=== PATIENT | female | born 1935 | race Caucasian/White ===

== ENCOUNTER 2016-10-15 10:10 | Inpatient (IN) ==
[2016-10-15] MEDS ORDERED: ALBUTEROL 2.5 MG/3 ML NEB RESP TX PRN (10:36)
[2016-10-15] MEDS ORDERED: ACETAMINOPHEN 325 MG TABLET PO PRN (10:36)
--- NOTE | 2016-10-15 10:42 | Nephrology History & Physical ---
History of Present Illness Chief complaint: abdominal pain, nausea History of present illness: Ms. Csah is a 81 year old female with history of HTN, CKD stage III, arthrititis, atrial fibrillation who presented today in clinic with a one month history of nausea and vomiting associated with abdominal pain. The patient had been evaluated in the emergency department several times for similar symptoms. However, she mentions that she is continue to get worse. She further mentions that today, she was not able to keep her medicines are food down. There has been no history of fevers or chills. She denies any other change in her medicines. She states she just feels weak all over. Home Medications Medication Instructions Recorded Confirmed Type Allopurinol [Zyloprim] 100 mg PO BID 08/08/15 10/15/16 History Donepezil HCl 5 mg PO BEDTIME 08/08/15 10/15/16 History Furosemide Tab [Lasix Tab] 40 mg PO BID DIURETIC PRN 08/08/15 10/15/16 History Temazepam 15 mg PO BEDTIME PRN 08/08/15 10/15/16 History Pantoprazole Tab [Protonix Tab] 40 mg PO DAILY #30 tablet 08/15/15 10/15/16 Rx Aspirin EC Tab 81 mg PO DAILY 01/12/16 10/15/16 History hydroCHLOROthiazide 25 mg PO DAILY 01/12/16 10/15/16 History [Hydrochlorothiazide] Doxazosin [Cardura] 2 mg PO DAILY 09/18/16 10/15/16 History Hydralazine HCl 100 mg PO BID 09/18/16 09/18/16 History Metoprolol Tartrate Tab [Lopressor 25 mg PO BID 09/18/16 10/15/16 History Tab] Cyclobenzaprine [Flexeril] 7.5 mg PO Q6HR 10/15/16 10/15/16 History HYDROcodone/ACETAMIN 5-325 [[place] 1 tablet PO DAILY PRN 10/15/16 10/15/16 History 5-325] Potassium Chloride [Klor-Con M20] 1 tablet PO DAILY PRN 10/15/16 10/15/16 History Allergies Allergy/AdvReac Type Severity Reaction Status Date / Time simvastatin [From Zocor] AdvReac Gastrointestinal Verified 09/18/16 22:15 Upset arthritis med Allergy Intermediate RASH Uncoded 09/18/16 22:15 Review of Systems Constitutional: anorexia, malaise, no chills Cardiovascular: no chest pain at rest, no chest pain with activity Respiratory: dyspnea, no cough Gastrointestinal: abdominal pain (lower abdominal pain) Medical,Surgical,& Family Hx - Medical History Cardio: History of: Cardiac Dysrhythmia (atrial fib), Hypertension Neurology: No history of: Seizures HEENT: History of: Eye Problem (retinal bleed) Endocrine: No history of: Diabetes Mellitus (NIDDM) Rheumatology: History of;: Gout, Rheumatoid Arthritis Renal: History of: Renal Failure (chronic class III previous had acute the recovered) Musculoskeletal: History of: Musculoskeletal Problems (the patient has arthritic changes. She states that she has RA) No history of: Amputation Hematology: History of: Blood Transfusion Reaction (1978) Other: History of: Miscellaneous Medical Problems (large pericardial effusion status post pericardiocentesis) - Surgical History Cardiac Surgeries: Patient Denies: Cardiac Catheterization Thoracic Surgeries: Patient denies;: Organ Transplant Neurologic Surgeries: Patient denies: Neurologic Surgery HEENT Surgeries: Surgical HX of: Eye Surgery Patient denies: Thyroid Surgery, Tonsilectomy & Adenoidectomy Reproductive Surgeries: Patient denies;: Genitourinary Surgery, Gynecologic Surgery - Family History Family History: Reports;: Family Heart Disease, Family Hypertension - Social History Smoking Status: Never smoker Exam - Nephrology - General Appearance General appearance: well-developed, appears started age, fatigue EENT: mucous membranes moist, mucous membranes dry Neck: supple Respiratory: clear Cardiology: no edema, regular rate, regular rhythm Gastrointestinal: tenderness (mild tenderness of the lower abdominal exam) Neurologic: alert and oriented x3, CN 3-12 intact Musculoskeletal: no deformities Psychiatric: mood/affect appropriate, cooperative Results - Labs CBC & BMP: 10/15/16 14:59 10/15/16 14:59 Assessment and Plan (1) A-fib Status: Chronic Assessment and plan: rate controlled Current Visit: No (2) Diabetes mellitus Status: Chronic Current Visit: No Qualifiers: Diabetes mellitus type: type 2 (3) Atrial fibrillation Status: Chronic Current Visit: No Qualifiers: Atrial fibrillation type: paroxysmal Qualified Code(s): I48.0 - Paroxysmal atrial fibrillation (4) CKD (chronic kidney disease) stage 3, GFR 30-59 ml/min Status: Chronic Assessment and plan: Renal function is at baseline. Current Visit: No (5) Rheumatoid arthritis Status: Chronic Current Visit: No (6) Cough Status: Acute Assessment and plan: Guaifenesin with codeine. Chest x-ray. Current Visit: Yes
[2016-10-15] MEDS ORDERED: GLUCAGON 1 MG VIAL IM PRN (10:45)
[2016-10-15] MEDS ORDERED: DEXTROSE 50% 25 GM/50 ML VIAL IV PRN (10:45)
[2016-10-15 15:54] LABS: Basophils % 0.3 % (0.0-0.8); Eosinophils # 0.2 10*3/uL (0.0-0.87); Eosinophils % 2.9 % (0.00-10.9); Hematocrit 33.2 VOL% (35.7-47.0); Hemoglobin 10.7 GM/DL (12.0-16.0); Immature Granulocytes % 1.4 %; Immature Granulocytes Absolute 0.09 #; Lymphocytes # 2.2 10*3/uL (1.4-4.0); Lymphocytes % 33.1 % (21.3-54.2); Mean Corpuscular HGB Conc 32.2 GM/DL (32-36); Mean Corpuscular Hemoglobin 30 PG (27-34); Mean Corpuscular Volume 93.3 FL (87-102); Mean Platelet Volume 11.7 FL (9.6-12.0); Monocytes # 0.8 10*3/uL (0.11-0.8); Monocytes % 12.2 % (1.7-12.7); Neutrophils # 3.3 10*3/uL (1.4-7.4); Neutrophils % 50.1 % (38.7-73.9); Platelet Count 224 T/CUMM (130-400); Red Blood Count 3.56 MC/CUMM (3.8-5.5); Red Cell Distribution Width 16.1 % (9.3-17.3); White Blood Count 6.5 T/CUMM (4-12)
[2016-10-15 16:21] LABS: Albumin 3.4 G/DL (3.4-5.0); Bilirubin,Total 0.4 MG/DL (0.2-1.0); Calcium 8.7 MG/DL (8.5-10.1); Osmolality,Calculated 296.3 MOS/KG (273-304); Potassium 3.2 MMOL/L (3.5-5.1); Total Protein 5.3 G/DL (6.4-8.3)
--- NOTE | 2016-10-15 17:49 | XRay Report ---
XR abdomen 1V Clinical Information: Abdominal Pain lower abdomen Comparison: 09/18/16 Findings: Bowel gas pattern is nonspecific and within normal limits. No abnormally dilated small bowel loops are identified to suggest obstruction. There is no free air identified. Scattered fecal material is noted throughout colon, which is otherwise nondilated. No abnormal focal soft tissue masses or calcific densities are identified in the abdomen or pelvis. Lung bases appear predominantly clear. There is no acute osseous abnormality. No suspicious osseous lesions are identified. Impression: No acute radiographic abnormality in the abdomen. A mild degree of fecal stasis/constipation is suspected. PROCEDURE INTERPRETED AT [facility] DEPARTMENT OF RADIOLOGY Final Report Signed by: Konstantin Jo
[2016-10-15] MEDS: INSULIN REGULAR 100 UNIT/ML SUBCUT SCH ×2 (19:03→21:20)
[2016-10-15] MEDS: SODIUM CHLORIDE 0.45% 1,000 ML IV SCH (19:18)
[2016-10-15] MEDS: ENOXAPARIN 30 MG/0.3 ML SYRINGE SUBCUT SCH (20:18)
[2016-10-15] MEDS ORDERED: FUROSEMIDE 40 MG TABLET PO PRN (20:33)
[2016-10-15] MEDS ORDERED: POTASSIUM CHLORIDE 20 MEQ TABLET PO PRN (20:33)
[2016-10-15 21:01] LABS: Apearance,Urine CLEAR (Clear); Bilirubin,Urine Negative (Negative); Blood, Urine Negative (Negative); Glucose,Urine (UA) Negative (Negative); Ketones,Urine Negative (Negative); Nitrite,Urine Negative (Negative); Protein,Urine 100 MG/DL; RBC,Urine <1 /HPF (0-4); Squamous Epithelial Cell,Urine Occasional /HPF (0-10); Transitional Epi Cells,Urine Occasional /HPF (<1); Urine Color Yellow (Yellow); Urine Urobilinogen < 2.0 EU/DL (0.2-1.0); WBC,Urine 3 /HPF (0-6)
[2016-10-15] MEDS: guaiFENesin/CODEINE 5 ML LIQUID PO PRN (21:13)
[2016-10-15] MEDS: TEMAZEPAM 15 MG CAPSULE PO PRN (21:13)
[2016-10-15] MEDS: FAMOTIDINE 20 MG TABLET PO SCH (21:13)
[2016-10-15] MEDS: METOPROLOL TARTRATE 25 MG TABLET PO SCH (21:13)
[2016-10-15] MEDS: DONEPEZIL 5 MG TABLET PO SCH (21:13)
[2016-10-15] MEDS: DOCUSATE SODIUM 100 MG CAPSULE PO SCH (21:13)
[2016-10-15] MEDS: ALLOPURINOL 100 MG TABLET PO SCH (21:19)
[2016-10-16 05:40] LABS: Calcium 7.9 MG/DL (8.5-10.1); Osmolality,Calculated 290.7 MOS/KG (273-304)
[2016-10-16] MEDS: SODIUM CHLORIDE 0.45% 1,000 ML IV SCH ×2 (06:21→10:46)
--- NOTE | 2016-10-16 08:15 | XRay Report ---
Referring Physician: Brandon Escobar Jr Exam: XR chest 1V portable Date: October 16, 2016 at 3:58 AM Reason: Cough Comparison: Chest one view portable September 18, 2016 Findings: The cardiac silhouette is again enlarged. The interstitial markings and pulmonary vasculature are slightly prominent bilaterally, suggesting minimal pulmonary edema. No pneumothorax or pleural effusion is identified. The osseous structures appear stable with degenerative change at both shoulders. Impression: 1. Cardiomegaly. 2. Minimal pulmonary edema. PROCEDURE INTERPRETED AT [facility] DEPARTMENT OF RADIOLOGY Final Report Signed by: Dr. Bernardo Walsh
--- NOTE | 2016-10-16 09:04 | Nephrology Progress Note ---
Nephrology - PN: Subj Interval history: Patient is resting comfortably no acute changes. States her abdominal discomfort is better. Follow-up KUB showed evidence of constipation but no air- fluid levels. No fevers or chills. Exam (PN)-Nephrology - Vital Signs Vital signs: Period Temp Pulse Resp BP Sys/Wilde Pulse Ox Last 24 Hr 98.0 F-98.9 F 72-89 18-18 108-139/53-89 95-100 - General Appearance General appearance: well-developed, well-nourished EENT: ATNC Neck: supple Respiratory: clear Cardiology: regular rate, irregular rhythm Gastrointestinal: normoactive bowel sounds, no tenderness Neurologic: alert and oriented x3, CN 3-12 intact Musculoskeletal: no clubbing Psychiatric: mood/affect appropriate - Lab 10/15/16 14:59 10/16/16 04:27 Most recent lab results Calcium 7.9 MG/DL (8.5-10.1) L 10/16/16 04:27 Assessment and Plan (1) A-fib Status: Chronic Assessment and plan: rate controlled Current Visit: No (2) Diabetes mellitus Status: Chronic Current Visit: No Qualifiers: Diabetes mellitus type: type 2 (3) Atrial fibrillation Status: Chronic Current Visit: No Qualifiers: Atrial fibrillation type: paroxysmal Qualified Code(s): I48.0 - Paroxysmal atrial fibrillation (4) CKD (chronic kidney disease) stage 3, GFR 30-59 ml/min Status: Chronic Assessment and plan: Renal function is at baseline. Current Visit: No (5) Rheumatoid arthritis Status: Chronic Current Visit: No (6) Cough Status: Acute Assessment and plan: Guaifenesin with codeine. Current Visit: Yes
[2016-10-16] MEDS: DOCUSATE SODIUM 100 MG CAPSULE PO SCH ×2 (10:44→20:17)
[2016-10-16] MEDS: ASPIRIN EC 81 MG TABLET PO SCH (10:45)
[2016-10-16] MEDS: ALLOPURINOL 100 MG TABLET PO SCH ×2 (10:45→20:17)
[2016-10-16] MEDS: FAMOTIDINE 20 MG TABLET PO SCH ×2 (10:45→20:17)
[2016-10-16] MEDS: DOXAZOSIN 1 MG TABLET PO SCH (10:45)
[2016-10-16] MEDS: METOPROLOL TARTRATE 25 MG TABLET PO SCH ×2 (10:46→20:18)
[2016-10-16] MEDS: INSULIN REGULAR 100 UNIT/ML SUBCUT SCH ×4 (12:03→20:19)
[2016-10-16] MEDS: POTASSIUM CHLORIDE 20 MEQ TABLET PO SCH (20:16)
[2016-10-16] MEDS: CYCLOBENZAPRINE 10 MG TABLET PO SCH (20:17)
[2016-10-16] MEDS: ENOXAPARIN 30 MG/0.3 ML SYRINGE SUBCUT SCH (20:18)
[2016-10-16] MEDS: DONEPEZIL 5 MG TABLET PO SCH (20:18)
[2016-10-17 06:15] LABS: Calcium 7.7 MG/DL (8.5-10.1); Osmolality,Calculated 290.4 MOS/KG (273-304)
[2016-10-17] MEDS: SODIUM CHLORIDE 0.45% 1,000 ML IV SCH (06:51)
[2016-10-17] MEDS: CYCLOBENZAPRINE 10 MG TABLET PO SCH ×4 (08:52→21:07)
[2016-10-17] MEDS: DOXAZOSIN 1 MG TABLET PO SCH (08:52)
[2016-10-17] MEDS: ALLOPURINOL 100 MG TABLET PO SCH ×2 (08:52→21:07)
[2016-10-17] MEDS: FAMOTIDINE 20 MG TABLET PO SCH ×2 (08:52→21:07)
[2016-10-17] MEDS: ASPIRIN EC 81 MG TABLET PO SCH (08:52)
[2016-10-17] MEDS: METOPROLOL TARTRATE 25 MG TABLET PO SCH ×2 (08:52→21:07)
[2016-10-17] MEDS: INSULIN REGULAR 100 UNIT/ML SUBCUT SCH ×2 (08:53→14:00)
[2016-10-17] MEDS: DOCUSATE SODIUM 100 MG CAPSULE PO SCH ×2 (08:53→21:07)
[2016-10-17] MEDS: POTASSIUM CHLORIDE 20 MEQ TABLET PO SCH ×2 (08:53→21:06)
--- NOTE | 2016-10-17 19:13 | Nephrology Progress Note ---
Nephrology - PN: Subj Interval history: The patient is resting comfortably no acute changes no fevers or chills. No shortness of breath. Renal function has been stable. Exam (PN)-Nephrology - Vital Signs Vital signs: Period Temp Pulse Resp BP Sys/Wilde Pulse Ox Last 24 Hr 98.1 F-99.0 F 71-86 16-20 104-128/53-69 94-100 - General Appearance General appearance: well-developed, well-nourished EENT: ATNC Neck: supple Respiratory: clear Cardiology: no edema, regular rate, regular rhythm Gastrointestinal: normoactive bowel sounds, no tenderness, no guarding Neurologic: alert and oriented x3, CN 3-12 intact Musculoskeletal: no clubbing Psychiatric: mood/affect appropriate, cooperative - Lab 10/15/16 14:59 10/17/16 05:26 Most recent lab results Calcium 7.7 MG/DL (8.5-10.1) L 10/17/16 05:26 Assessment and Plan (1) A-fib Status: Chronic Assessment and plan: rate controlled Current Visit: No (2) Diabetes mellitus Status: Chronic Current Visit: No Qualifiers: Diabetes mellitus type: type 2 (3) Atrial fibrillation Status: Chronic Current Visit: No Qualifiers: Atrial fibrillation type: paroxysmal Qualified Code(s): I48.0 - Paroxysmal atrial fibrillation (4) CKD (chronic kidney disease) stage 3, GFR 30-59 ml/min Status: Chronic Assessment and plan: Renal function is at baseline. Current Visit: No (5) Rheumatoid arthritis Status: Chronic Current Visit: No (6) Cough Status: Acute Assessment and plan: Guaifenesin with codeine. Current Visit: Yes
[2016-10-17] MEDS: DONEPEZIL 5 MG TABLET PO SCH (21:07)
[2016-10-17] MEDS: guaiFENesin/CODEINE 5 ML LIQUID PO PRN (21:08)
[2016-10-17] MEDS: ENOXAPARIN 30 MG/0.3 ML SYRINGE SUBCUT SCH (21:08)
[2016-10-18] MEDS: SODIUM CHLORIDE 0.45% 1,000 ML IV SCH ×2 (02:17→21:33)
[2016-10-18] MEDS ORDERED: CYANOCOBALAMIN 1000 MCG/1 ML VIAL SUBCUT ONE (08:00)
[2016-10-18] MEDS: ASPIRIN EC 81 MG TABLET PO SCH (08:52)
[2016-10-18] MEDS: METOPROLOL TARTRATE 25 MG TABLET PO SCH ×2 (08:52→21:30)
[2016-10-18] MEDS: ALLOPURINOL 100 MG TABLET PO SCH ×2 (08:52→21:31)
[2016-10-18] MEDS: FAMOTIDINE 20 MG TABLET PO SCH ×2 (08:52→21:31)
[2016-10-18] MEDS: POTASSIUM CHLORIDE 20 MEQ TABLET PO SCH (08:52)
[2016-10-18] MEDS: DOCUSATE SODIUM 100 MG CAPSULE PO SCH ×2 (08:52→21:30)
[2016-10-18] MEDS: DOXAZOSIN 1 MG TABLET PO SCH (08:53)
[2016-10-18] MEDS: CYCLOBENZAPRINE 10 MG TABLET PO SCH ×4 (08:53→21:30)
[2016-10-18] MEDS: ONDANSETRON 4 MG/2 ML VIAL IV PRN ×2 (09:04→16:40)
--- NOTE | 2016-10-18 16:55 | Nephrology Progress Note ---
Nephrology - PN: Subj Interval history: The patient is resting comfortably no acute changes. She continues to feel nauseated. No fevers or chills. No shortness of breath. Phenergan 12.5 mg p.o. as needed Exam (PN)-Nephrology - Vital Signs Vital signs: Period Temp Pulse Resp BP Sys/Wilde Pulse Ox Last 24 Hr 97.5 F-98.3 F 69-99 16-20 105-130/57-72 96-100 - General Appearance General appearance: well-developed, well-nourished EENT: ATNC Neck: supple Respiratory: clear Cardiology: no edema, regular rate, regular rhythm Gastrointestinal: normoactive bowel sounds, no tenderness Neurologic: alert and oriented x3 Musculoskeletal: no erythema, no clubbing Psychiatric: mood/affect appropriate - Lab 10/15/16 14:59 10/17/16 05:26 Most recent lab results Calcium 7.7 MG/DL (8.5-10.1) L 10/17/16 05:26 Assessment and Plan (1) A-fib Status: Chronic Assessment and plan: rate controlled Current Visit: No (2) Diabetes mellitus Status: Chronic Current Visit: No Qualifiers: Diabetes mellitus type: type 2 (3) Atrial fibrillation Status: Chronic Current Visit: No Qualifiers: Atrial fibrillation type: paroxysmal Qualified Code(s): I48.0 - Paroxysmal atrial fibrillation (4) CKD (chronic kidney disease) stage 3, GFR 30-59 ml/min Status: Chronic Assessment and plan: Renal function is at baseline. Current Visit: No (5) Rheumatoid arthritis Status: Chronic Current Visit: No (6) Cough Status: Acute Assessment and plan: Guaifenesin with codeine. Current Visit: Yes
[2016-10-18] MEDS ORDERED: PROMETHAZINE 25 MG TABLET PO PRN (17:40)
[2016-10-18] MEDS: DONEPEZIL 5 MG TABLET PO SCH (21:29)
[2016-10-18] MEDS: ENOXAPARIN 30 MG/0.3 ML SYRINGE SUBCUT SCH (21:35)
[2016-10-19 08:08] LABS: Basophils % 0.5 % (0.0-0.8); Eosinophils # 0.3 10*3/uL (0.0-0.87); Eosinophils % 5.9 % (0.00-10.9); Hematocrit 30.7 VOL% (35.7-47.0); Hemoglobin 9.7 GM/DL (12.0-16.0); Immature Granulocytes % 1.1 %; Immature Granulocytes Absolute 0.05 #; Lymphocytes # 1.5 10*3/uL (1.4-4.0); Lymphocytes % 33.9 % (21.3-54.2); Mean Corpuscular HGB Conc 31.6 GM/DL (32-36); Mean Corpuscular Hemoglobin 30 PG (27-34); Mean Platelet Volume 10.6 FL (9.6-12.0); Monocytes # 0.5 10*3/uL (0.11-0.8); Monocytes % 11.7 % (1.7-12.7); Neutrophils # 2.1 10*3/uL (1.4-7.4); Neutrophils % 46.9 % (38.7-73.9); Platelet Count 197 T/CUMM (130-400); Red Blood Count 3.23 MC/CUMM (3.8-5.5); Red Cell Distribution Width 16.3 % (9.3-17.3); White Blood Count 4.4 T/CUMM (4-12)
[2016-10-19 08:32] LABS: Calcium 7.8 MG/DL (8.5-10.1); Osmolality,Calculated 288.4 MOS/KG (273-304)
--- NOTE | 2016-10-19 08:35 | Nephrology Progress Note ---
Nephrology - PN: Subj Interval history: The patient is resting continued to have some nausea yesterday. No fevers or chills. Metabolic's have been stable. Abdominal ultrasound to be done today which did not show acute abnormality. However patient still complains of abdominal tenderness. Will ask for GI consult. Exam (PN)-Nephrology - Vital Signs Vital signs: Period Temp Pulse Resp BP Sys/Wilde Pulse Ox Last 24 Hr 97.1 F-99.1 F 76-104 14-18 116-130/57-74 95-100 - General Appearance General appearance: well-developed EENT: ATNC Neck: supple Respiratory: clear Cardiology: regular rate, regular rhythm Gastrointestinal: normoactive bowel sounds, tenderness (To light touch) Integumentary: no rash Neurologic: alert and oriented x3, CN 3-12 intact Musculoskeletal: no clubbing Psychiatric: mood/affect appropriate - Lab 10/19/16 07:52 10/19/16 07:52 Most recent lab results Calcium 7.7 MG/DL (8.5-10.1) L 10/17/16 05:26 Assessment and Plan (1) A-fib Status: Chronic Assessment and plan: rate controlled Current Visit: No (2) Diabetes mellitus Status: Chronic Current Visit: No Qualifiers: Diabetes mellitus type: type 2 (3) Atrial fibrillation Status: Chronic Current Visit: No Qualifiers: Atrial fibrillation type: paroxysmal Qualified Code(s): I48.0 - Paroxysmal atrial fibrillation (4) CKD (chronic kidney disease) stage 3, GFR 30-59 ml/min Status: Chronic Assessment and plan: Renal function is at baseline. Current Visit: No (5) Rheumatoid arthritis Status: Chronic Current Visit: No (6) Cough Status: Acute Assessment and plan: Guaifenesin with codeine. Current Visit: Yes
--- NOTE | 2016-10-19 08:43 | Ultrasound Report ---
History: Nausea Date: 10/19/2016 Study: Abdominal ultrasound complete Comparison exam: Noncontrast CT abdomen and pelvis January 12, 2016 Real-time ultrasound images are captured and archived. The liver, gallbladder, bile ducts, pancreas, and spleen appear normal. The liver measures 13.2 cm in length. There is no evidence of cholelithiasis or gallbladder wall thickening. The common bile duct measures 5.5 mm diameter. The spleen measures 10.6 x 5.6 x 5.1 cm. There are some occasional scattered calcified granulomata in the spleen. The left kidney measures 7.7 cm length; the right measures 8.3 cm. The renal parenchyma is hyperechoic to the liver, compatible with some medical renal parenchymal disease. There is no focal renal mass or hydronephrosis. The IVC is patent. There is hepatopedal flow in the portal vein. There is some moderate atherosclerotic irregularity of the abdominal aorta without focal aneurysm. Impression: Medical renal parenchymal disease. No significant findings otherwise PROCEDURE INTERPRETED AT [facility] DEPARTMENT OF RADIOLOGY Final Report Signed by: Dr. Trish Kirby
[2016-10-19] MEDS: ASPIRIN EC 81 MG TABLET PO SCH (09:39)
[2016-10-19] MEDS: METOPROLOL TARTRATE 25 MG TABLET PO SCH ×2 (09:39→20:38)
[2016-10-19] MEDS: FAMOTIDINE 20 MG TABLET PO SCH (09:39)
[2016-10-19] MEDS: CYCLOBENZAPRINE 10 MG TABLET PO SCH ×4 (09:39→20:38)
[2016-10-19] MEDS: ALLOPURINOL 100 MG TABLET PO SCH ×2 (09:39→20:38)
[2016-10-19] MEDS: DOXAZOSIN 1 MG TABLET PO SCH (09:39)
[2016-10-19] MEDS: DOCUSATE SODIUM 100 MG CAPSULE PO SCH (09:40)
[2016-10-19] MEDS ORDERED: BISACODYL 10 MG SUPP RECTAL ONE (11:00)
--- NOTE | 2016-10-19 16:50 | Gastrointestinal Consult Note ---
Assessment and Plan (1) Nausea and vomiting Status: Acute Assessment and plan: This patient has nausea and vomiting which are extremely nonspecific. They may be related to an underlying buildup of acid stomach or buildup of food with hypomotility, there could be a systemic cause such as infection, or this may be secondary to an underlying constipation as the patient appears to be experiencing this and have been treated with Dulcolax but I believe we need to advance this to MiraLAX at this point. She might also do better on Protonix then famotidine which has been started up to this point. Current Visit: Yes (2) Constipation Status: Acute Assessment and plan: The patient's bowel habits change with some regularity. Right now she feels constipated but states that she is typically diarrheal. That being said for the entire time she has been here she has been having difficulty passing the stool. I am going to start her on some MiraLAX twice daily and will see if she starts to have bowel movements with greater regularity. Sodium docusate does not appear to be effective for this patient. She has not had a colonoscopy in years but Dr. Vickers can probably pursue this as an outpatient Current Visit: Yes (3) Generalized abdominal pain Status: Acute Assessment and plan: The patient does have some generalized abdominal pain and this may be due to hypomotility/constipation/possibly gastroparesis. We need to better quantify the patient's emptying from her stomach. She might be a candidate for Reglan or least discontinuation of the narcotics. In the interim, I will go ahead and stop the famotidine and start pantoprazole 40 mg twice daily. Further recommendations post trial of the increased pantoprazole. Current Visit: Yes (4) Personal history of colonic polyps Status: Acute Assessment and plan: This patient had apparently had previous colonoscopy done at [facility] 5- 10 years ago. Will be helpful to try and get these old records. She states that she did have polyps and this needs to be verified. She can follow-up with Dr. Vickers was time to get her colonoscopy as he saw her last month. Current Visit: Yes History of Present Illness Chief complaint: Nausea/vomiting/constipation/diffuse abdominal pain. History of present illness: Ms. Cash is a 81 year old female who has seen Dr. Vickers as recently as for an upper GI bleeding episode in association with a coagulopathy. He is out for the weekend. At that time, she had been taking Coumadin and had an episode of hematemesis that was felt to be due to a Mabel-Madison tear after increasing her INR to 6. She was treated with fresh frozen plasma as well as discontinuation of her aspirin and Coumadin after endoscopy on 09/01/15 demonstrated the Mabel-Madison tear with otherwise normal-appearing stomach and esophagus. Patient states that she has had long-standing nausea and vomiting despite use of Protonix 40 mg daily since that time and although she states that she has diarrhea frequently she has had constipation over the last 5 days which nursing staff has had to recently treat with a Dulcolax suppository. The patient was admitted to the hospital by Dr. Brandon Patterson on 10/15/16 for nausea vomiting and abdominal pain. She states that the belly pain is diffuse but seems to be worse in the periumbilical and left lower quadrant regions in keeping with underlying constipation issues. She states that she has had a history of colonoscopy performed [facility] sometime in the last 5 years with the discovery of polyps at that time.. She does not claim to be particularly bloated. She does take aspirin in addition to the pantoprazole on a daily basis and her only other caustic medication is potassium routinely. She has had an abdominal ultrasound done which was unremarkable concerning the liver, gallbladder, bile ducts, pancreas, and spleen as well as liver although there were a few occasional scattered calcified granulomas in the spleen. While here in the hospital the patient has been on Lovenox and has been getting famotidine but no Protonix. She has been getting Dulcolax but is also being treated with narcotics in addition to her Zofran which she has not been asking for routinely. I wonder whether there is significant constipation going on but the patient denies this though the nursing staff confirms that she has not had a bowel movement several days. Belly pain would appear to be consistent with obstipation. Previous CT scan done in December 2015 demonstrated diffuse diverticulosis without active inflammation. 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 Home Medications Medication Instructions Recorded Confirmed Type Allopurinol [Zyloprim] 100 mg PO BID 08/08/15 10/15/16 History Donepezil HCl 5 mg PO BEDTIME 08/08/15 10/15/16 History Furosemide Tab [Lasix Tab] 40 mg PO BID DIURETIC PRN 08/08/15 10/15/16 History Temazepam 15 mg PO BEDTIME PRN 08/08/15 10/15/16 History Pantoprazole Tab [Protonix Tab] 40 mg PO DAILY #30 tablet 08/15/15 10/15/16 Rx Aspirin EC Tab 81 mg PO DAILY 01/12/16 10/15/16 History hydroCHLOROthiazide 25 mg PO DAILY 01/12/16 10/15/16 History [Hydrochlorothiazide] Doxazosin [Cardura] 2 mg PO DAILY 09/18/16 10/15/16 History Hydralazine HCl 100 mg PO BID 09/18/16 10/15/16 History Metoprolol Tartrate Tab [Lopressor 25 mg PO BID 09/18/16 10/15/16 History Tab] Cyclobenzaprine [Flexeril] 7.5 mg PO Q6HR 10/15/16 10/15/16 History HYDROcodone/ACETAMIN 5-325 [[place] 1 tablet PO DAILY PRN 10/15/16 10/15/16 History 5-325] Potassium Chloride [Klor-Con M20] 1 tablet PO DAILY PRN 10/15/16 10/15/16 History Allergies Allergy/AdvReac Type Severity Reaction Status Date / Time simvastatin [From Zocor] AdvReac Gastrointestinal Verified 09/18/16 22:15 Upset arthritis med Allergy Intermediate RASH Uncoded 09/18/16 22:15 Medical,Surgical,& Family Hx - Medical History Cardio: History of: Cardiac Dysrhythmia (atrial fib), Hypertension Neurology: No history of: Seizures HEENT: History of: Eye Problem (retinal bleed) Endocrine: No history of: Diabetes Mellitus (NIDDM) Rheumatology: History of;: Gout, Rheumatoid Arthritis Renal: History of: Renal Failure (chronic class III previous had acute the recovered) Musculoskeletal: History of: Musculoskeletal Problems (the patient has arthritic changes. She states that she has RA) No history of: Amputation Hematology: History of: Blood Transfusion Reaction (1978) Other: History of: Miscellaneous Medical Problems (large pericardial effusion status post pericardiocentesis) - Surgical History Cardiac Surgeries: Patient Denies: Cardiac Catheterization Thoracic Surgeries: Patient denies;: Organ Transplant, Lobectomy Neurologic Surgeries: Patient denies: Neurologic Surgery HEENT Surgeries: Surgical HX of: Eye Surgery Patient denies: Thyroid Surgery, Tonsilectomy & Adenoidectomy Reproductive Surgeries: Patient denies;: Genitourinary Surgery, Gynecologic Surgery - Family History Family History: Reports;: Family Heart Disease, Family Hypertension - Social History Smoking Status: Never smoker Frequency of Alcohol Use: None Type of Drug Use: None 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 Exam - Constitutional Vitals: Period Temp Pulse Resp BP Sys/Wilde Pulse Ox Last 24 Hr 97.1 F-99.1 F 71-110 14-20 104-129/57-74 95-100 Exam: Constitutional: Well-developed, well-nourished, alert, and in no acute distress Head and face: Head: Normocephalic atraumatic Eyes: Conjunctiva without injection, no gross scleral icterus, pupils equal and round bilaterally Ears: Intact to conversation in both ears Nose: External appearance with nares patent Mouth: Oral mucous membranes moist without erythema dentition noted to be without erosion Neck: Normal appearance, no masses or tenderness, trachea midline Thyroid: Gland midline and appropriate size for age Respiratory: Normal respiratory effort, clear to auscultation without wheezes, rhonchi or rales Cardiovascular: Regular rate and rhythm, normal S1, S2, the exam is without rubs, murmurs or gallops. Gastrointestinal: Mildly tender throughout all quadrants this seems worse in the left lower quadrant to deep palpation, normal active bowel sounds, tone normal without rigidity or guarding, no masses present, no hepatomegaly, no spleen tip felt. No rectal exam obtained. Lymphatic: Neck without adenopathy, axilla without lymphadenopathy present Musculoskeletal: Right and left lower extremities with trace evidence of edema Skin and subcutaneous tissue: No rashes or ulcerations noted, normal skin turgor, digits and nails without clubbing/cyanosis/deformities. Neurologic: The patient is grossly oriented to person place and time, cranial nerves show tongue movements are normal with normal tongue extrusion midline, light touch sensation is intact. Psychiatric: No hallucinations or delusions are present, does not appear depressed Results - Labs CBC & BMP: 10/19/16 07:52 10/19/16 07:52
[2016-10-19] MEDS: ONDANSETRON 4 MG/2 ML VIAL IV PRN (18:27)
[2016-10-19] MEDS: SODIUM CHLORIDE 0.45% 1,000 ML IV SCH (18:27)
[2016-10-19] MEDS: ENOXAPARIN 30 MG/0.3 ML SYRINGE SUBCUT SCH (20:37)
[2016-10-19] MEDS: DONEPEZIL 5 MG TABLET PO SCH (20:38)
[2016-10-19] MEDS: PANTOPRAZOLE 40 MG TABLET PO SCH (20:38)
[2016-10-19] MEDS: POLYETHYLENE GLYCOL POWDER 17 GM PACK PO SCH ×2 (20:38→22:56)
--- NOTE | 2016-10-20 08:24 | Gastrointestinal Progress Note ---
Assessment and Plan (1) Nausea and vomiting Status: Acute Assessment and plan: This patient has nausea and vomiting which are extremely nonspecific. They may be related to an underlying buildup of acid stomach or buildup of food with hypomotility, there could be a systemic cause such as infection, or this may be secondary to an underlying constipation as the patient appears to be experiencing this and have been treated with Dulcolax but I believe we need to advance this to MiraLAX at this point. She might also do better on Protonix then famotidine which has been started up to this point. 10/20/16--We are checking the patient's gastric emptying at this time. She is on the Protonix twice daily to suppress her acidity and is getting MiraLAX to help with her underlying constipation. Her creatinine is improved slightly. Current Visit: Yes (2) Constipation Status: Acute Assessment and plan: The patient's bowel habits change with some regularity. Right now she feels constipated but states that she is typically diarrheal. That being said for the entire time she has been here she has been having difficulty passing the stool. I am going to start her on some MiraLAX twice daily and will see if she starts to have bowel movements with greater regularity. Sodium docusate does not appear to be effective for this patient. She has not had a colonoscopy in years but Dr. Vickers can probably pursue this as an outpatient 10/20/16--Still awaiting benefit from the MiraLAX. Current Visit: Yes (3) Generalized abdominal pain Status: Acute Assessment and plan: The patient does have some generalized abdominal pain and this may be due to hypomotility/constipation/possibly gastroparesis. We need to better quantify the patient's emptying from her stomach. She might be a candidate for Reglan or least discontinuation of the narcotics. In the interim, I will go ahead and stop the famotidine and start pantoprazole 40 mg twice daily. Further recommendations post trial of the increased pantoprazole. 10/20/16--Subjectively this is marginally better from yesterday. We will continue to watch. I am going to put the patient back on a clear liquid diet as she is still having some vomiting. Current Visit: Yes (4) Personal history of colonic polyps Status: Acute Assessment and plan: This patient had apparently had previous colonoscopy done at [facility] 5- 10 years ago. Will be helpful to try and get these old records. She states that she did have polyps and this needs to be verified. She can follow-up with Dr. Vickers was time to get her colonoscopy as he saw her last month. 10/20/16--We can follow this up as an outpatient, with Dr. Vickers. Current Visit: Yes Gastroenterology - PN: Subj Interval history: Patient did not tolerate her renal diet well yesterday with small bites only and vomiting as well. With hydration her creatinine has improved marginally. She did do fairly well with the egg tolerance this morning and is getting her gastric emptying study as we speak. Exam (Progress Note) - Constitutional Vitals: Period Temp Pulse Resp BP Sys/Wilde Pulse Ox Last 24 Hr 97.2 F-98.7 F 71-110 16-20 104-129/67-78 96-98 General appearance: no acute distress - Eye Eye exam: Present: EOMI - Respiratory Respiratory exam: Present: clear to auscultation bilaterally - Cardiovascular Cardiovascular exam: Present: regular rate and rhythm - GI/Abdominal GI/Abdominal exam: Present: distended, hypoactive bowel sounds, tenderness ( There is tenderness noted throughout the abdomen, it is however soft and there is no guarding), soft. Absent: guarding, rebound - Neurological Exam Neurological exam: Present: alert, oriented X3 - Psychiatric Psychiatric exam: Present: normal affect, normal mood - Skin Skin exam: Present: warm Results - Labs CBC & BMP: 10/19/16 07:52 10/19/16 07:52
--- NOTE | 2016-10-20 08:40 | Nephrology Progress Note ---
Nephrology - PN: Subj Interval history: Ms. Cash is seen in follow-up of her chronic renal impairment. She is stable with a serum creatinine 2.9. She continues to complain of abdominal soreness but the abdomen is soft and nontender. Her chest is clear. Abdominal ultrasound is unremarkable. Gastric emptying study has been ordered by Dr. Bernal and hopefully that will be helpful. Exam (PN)-Nephrology - Vital Signs Vital signs: Period Temp Pulse Resp BP Sys/Wilde Pulse Ox Last 24 Hr 97.2 F-98.7 F 71-110 16-20 104-129/67-78 96-98 - Lab 10/19/16 07:52 10/19/16 07:52 Most recent lab results Calcium 7.8 MG/DL (8.5-10.1) L 10/19/16 07:52
[2016-10-20] MEDS: DOXAZOSIN 1 MG TABLET PO SCH (09:09)
[2016-10-20] MEDS: METOPROLOL TARTRATE 25 MG TABLET PO SCH ×2 (09:10→21:33)
[2016-10-20] MEDS: ALLOPURINOL 100 MG TABLET PO SCH ×2 (09:10→21:33)
[2016-10-20] MEDS: POLYETHYLENE GLYCOL POWDER 17 GM PACK PO SCH ×2 (09:10→21:34)
[2016-10-20] MEDS: ASPIRIN EC 81 MG TABLET PO SCH (09:10)
[2016-10-20] MEDS: PANTOPRAZOLE 40 MG TABLET PO SCH ×2 (09:10→18:36)
[2016-10-20] MEDS: CYCLOBENZAPRINE 10 MG TABLET PO SCH ×4 (09:10→21:33)
--- NOTE | 2016-10-20 12:13 | Nuclear Medicine Report ---
Exam: Nuclear medicine gastric emptying study Date: October 20, 2016 Comparison: None Reason: Chronic nausea and vomiting with negative EGD and ultrasound Technique: The patient was orally administered 500 microcuries of technetium 99m sulfur colloid orally in a scrambled egg sandwich. Images of the stomach were then acquired over 233 minutes, and gastric emptying time was calculated. Findings: Linear fit T 1/2 is 199.43 minutes, and raw data T 1/2 is 161.68 minutes. Gastric emptying at 233 minutes is 57% (Normal greater than 90%). Impression: Findings are consistent with delayed gastric emptying. PROCEDURE INTERPRETED AT [facility] DEPARTMENT OF RADIOLOGY Final Report Signed by: Dr. Bernardo Walsh
[2016-10-20] MEDS: SODIUM CHLORIDE 0.45% 1,000 ML IV SCH ×2 (17:00→21:42)
[2016-10-20] MEDS: DONEPEZIL 5 MG TABLET PO SCH (21:33)
[2016-10-20] MEDS: ENOXAPARIN 30 MG/0.3 ML SYRINGE SUBCUT SCH (21:34)
[2016-10-21] MEDS: DOXAZOSIN 1 MG TABLET PO SCH (08:44)
[2016-10-21] MEDS: ASPIRIN EC 81 MG TABLET PO SCH (08:44)
[2016-10-21] MEDS: ALLOPURINOL 100 MG TABLET PO SCH ×2 (08:44→20:51)
[2016-10-21] MEDS: CYCLOBENZAPRINE 10 MG TABLET PO SCH ×4 (08:44→20:51)
[2016-10-21] MEDS: PANTOPRAZOLE 40 MG TABLET PO SCH ×2 (08:45→20:51)
[2016-10-21] MEDS: POLYETHYLENE GLYCOL POWDER 17 GM PACK PO SCH ×2 (08:45→20:50)
[2016-10-21] MEDS: METOPROLOL TARTRATE 25 MG TABLET PO SCH ×2 (08:45→20:51)
[2016-10-21] MEDS: ONDANSETRON 4 MG/2 ML VIAL IV PRN (08:57)
--- NOTE | 2016-10-21 09:18 | Nephrology Progress Note ---
Nephrology - PN: Subj Interval history: Ms. Cash is seen in follow-up of her renal impairment and abdominal discomfort. A gastric emptying study is pending she says her abdomen feels better and is nontender today. Overall she is better and we will await her gastric emptying study. No changes are planned for today. Exam (PN)-Nephrology - Vital Signs Vital signs: Period Temp Pulse Resp BP Sys/Wilde Pulse Ox Last 24 Hr 97.3 F-98.4 F 85-106 18-20 107-140/60-75 95-96 - Lab 10/19/16 07:52 10/19/16 07:52 Most recent lab results Calcium 7.8 MG/DL (8.5-10.1) L 10/19/16 07:52
--- NOTE | 2016-10-21 11:13 | Gastrointestinal Progress Note ---
Assessment and Plan (1) Nausea and vomiting Status: Acute Assessment and plan: This patient has nausea and vomiting which are extremely nonspecific. They may be related to an underlying buildup of acid stomach or buildup of food with hypomotility, there could be a systemic cause such as infection, or this may be secondary to an underlying constipation as the patient appears to be experiencing this and have been treated with Dulcolax but I believe we need to advance this to MiraLAX at this point. She might also do better on Protonix then famotidine which has been started up to this point. 10/20/16--We are checking the patient's gastric emptying at this time. She is on the Protonix twice daily to suppress her acidity and is getting MiraLAX to help with her underlying constipation. Her creatinine is improved slightly. 10/21/16--gastric emptying study is significantly delayed with T1 half emptying time normally 90 minutes, in this patient is proximally 161 minutes. We will go ahead and start her on Reglan 5 mL of the elixir 4 times a day before meals and bed. This may also help out with her underlying constipation issues. The patient was warned about tardive dyskinesia and to observe for anxiety/twitching /involuntary muscle spasms. I have written her prescription for the medication and left this in the front of the chart for potential discharge tomorrow if she is feeling better. Current Visit: Yes (2) Constipation Status: Acute Assessment and plan: The patient's bowel habits change with some regularity. Right now she feels constipated but states that she is typically diarrheal. That being said for the entire time she has been here she has been having difficulty passing the stool. I am going to start her on some MiraLAX twice daily and will see if she starts to have bowel movements with greater regularity. Sodium docusate does not appear to be effective for this patient. She has not had a colonoscopy in years but Dr. Vickers can probably pursue this as an outpatient 10/20/16--Still awaiting benefit from the MiraLAX. 10/21/16--patient still has a fair amount of air in her GI tract. She has some response to the MiraLAX. We are waiting to see whether or not she will get benefit from Reglan which is being started at this time. Note that she is a patient of Dr. Vickers' and can follow-up with his office for colonoscopy as needed in the future. MiraLAX seems to be working effectively for her. Current Visit: Yes (3) Generalized abdominal pain Status: Acute Assessment and plan: The patient does have some generalized abdominal pain and this may be due to hypomotility/constipation/possibly gastroparesis. We need to better quantify the patient's emptying from her stomach. She might be a candidate for Reglan or least discontinuation of the narcotics. In the interim, I will go ahead and stop the famotidine and start pantoprazole 40 mg twice daily. Further recommendations post trial of the increased pantoprazole. 10/20/16--Subjectively this is marginally better from yesterday. We will continue to watch. I am going to put the patient back on a clear liquid diet as she is still having some vomiting. 10/21/16--This patient is previously had upper endoscopy on 09/01/[address] Vickers when she was being worked up for an upper GI bleeding source with the discovery of a Mabel-Madison tear and some mild gastritis. This admission the patient is noted to have delayed gastric emptying to 161 minutes. She also has underlying constipation. She may have some delay secondary to the narcotics she is on. She is getting MiraLAX with some benefit. She may benefit from a colonoscopy as an outpatient should her pain not improve, or if the development of anemia is noted. Current Visit: Yes (4) Personal history of colonic polyps Status: Acute Assessment and plan: This patient had apparently had previous colonoscopy done at [facility] 5- 10 years ago. Will be helpful to try and get these old records. She states that she did have polyps and this needs to be verified. She can follow-up with Dr. Vickers was time to get her colonoscopy as he saw her last month. 10/20/16--She can follow this up as an outpatient, with Dr. Vickers. 10/21/16--Will pass this patient back to Dr. Vickers in the morning time. Prescription for the Reglan left in the front of the chart for the patient's potential discharge should she leave prior to him seeing her. Again the patient will need a follow-up with him for colonoscopy due to her prior history of polyps, and the fact that she had seen Dr. Vickers in the last year and a half. Current Visit: Yes Gastroenterology - PN: Subj Interval history: Patient feels like she is doing better with less gastric distention at this point after having the gastric emptying study done yesterday. She was able to tolerate the eggs. This did end up demonstrating a delay in gastric emptying to 161 minutes T1 half emptying time. Normal is about 90 minutes. She tolerated the procedure well and we need to consider putting her on a renal diet today along with some Reglan to help with emptying. I had like to observe her for at least the next 24 hours before letting her go home with a prescription for this medication. Exam (Progress Note) - Constitutional Vitals: Period Temp Pulse Resp BP Sys/Wilde Pulse Ox Last 24 Hr 97.3 F-98.4 F 85-106 18-20 107-140/60-75 95-96 General appearance: no acute distress - Eye Eye exam: Present: EOMI - Respiratory Respiratory exam: Present: clear to auscultation bilaterally - Cardiovascular Cardiovascular exam: Present: regular rate and rhythm - GI/Abdominal GI/Abdominal exam: Present: distended, hypoactive bowel sounds, tenderness ( Epigastric and periumbilical mild tenderness to deep palpation), soft. Absent: guarding, rebound - Extremities Exam Extremities exam: Present: edema - Neurological Exam Neurological exam: Present: alert, oriented X3, CN II-XII intact. Absent: motor sensory deficit - Psychiatric Psychiatric exam: Present: normal affect, normal mood - Skin Skin exam: Present: warm Results - Labs CBC & BMP: 10/19/16 07:52 10/19/16 07:52
[2016-10-21] MEDS: METOCLOPRAMIDE 10 MG/10 ML UDCUP PO SCH ×3 (12:38→20:50)
[2016-10-21] MEDS: ENOXAPARIN 30 MG/0.3 ML SYRINGE SUBCUT SCH (20:50)
[2016-10-21] MEDS: DONEPEZIL 5 MG TABLET PO SCH (20:51)
[2016-10-22] MEDS: PANTOPRAZOLE 40 MG TABLET PO SCH ×3 (06:06→18:27)
--- NOTE | 2016-10-22 08:34 | Gastrointestinal Progress Note ---
<Melissa Reyes - Last Filed: 10/22/16 08:29> Assessment and Plan (1) Generalized abdominal pain Status: Acute Assessment and plan: 10/22-Abd pain improved, with no reports of N/V today. Having bowel movement and tolerating Reglan at present. Plan and addendum to follow by Dr Vickers. Current Visit: Yes Gastroenterology - PN: Subj Interval history: CC: Abdominal pain, nausea, vomiting Pt was admitted on Saturday with one month history of abdominal pain, bloating, nausea and vomiting. She had gastric emptying scan and was found to have delayed emptying. Was started on Reglan with improvements in symtoms. Was also started on Mirliax with bowel movements reported. Her last colonoscopy was reported 5 years ago at [facility] with only findings of a polyp and diverticulosis. States that she is feeling a little better today. Abdomen is soft, and nontender. She states her nausea and vomiting is much better controlled on the Reglan at this time. She denies any further abdominal pain. Pt is noted to have DM on her chart as a diagnosis however she states that this is not accurate and she has never been diagnosed with this in the past. She had a good bowel movement on yesterday. ROS: Denies SOB or chest pain Exam (Progress Note) - Constitutional Vitals: Period Temp Pulse Resp BP Sys/Wilde Pulse Ox Last 24 Hr 97.7 F-98.6 F 78-99 17-20 100-133/54-65 94-97 General appearance: normal weight, no acute distress - Head Head exam: Present: normal inspection, normocephalic - Eye Eye exam: Present: other (lids and conjunctiva unremarkable). Absent: scleral icterus - ENT ENT exam: Present: normal exam, normal oropharynx - Neck Neck exam: Present: normal inspection - Respiratory Respiratory exam: Present: clear to auscultation bilaterally. Absent: rales, rhonchi, wheezes - Cardiovascular Cardiovascular exam: Present: regular rate and rhythm. Absent: diastolic murmur , JVD, systolic murmur - GI/Abdominal GI/Abdominal exam: Present: normal bowel sounds, soft. Absent: ascites, distended, mass, organomegaly, tenderness - Extremities Exam Extremities exam: Present: normal inspection, full ROM - Back Exam Back exam: Present: normal inspection - Neurological Exam Neurological exam: Present: alert, oriented X3 - Psychiatric Psychiatric exam: Present: normal affect, normal mood - Skin Skin exam: Present: normal color, warm, dry Results - Labs CBC & BMP: 10/19/16 07:52 10/19/16 07:52 Lab Results: I have reviewed the past 24 hour labs <Justin Vickers - Last Filed: 10/22/16 18:25> Exam (Progress Note) - Constitutional Vitals: Period Temp Pulse Resp BP Sys/Wilde Pulse Ox Last 24 Hr 97.7 F-98.6 F 78-86 17-19 100-133/54-78 94-99 Results - Labs CBC & BMP: 10/19/16 07:52 10/19/16 07:52
[2016-10-22] MEDS: SODIUM CHLORIDE 0.45% 1,000 ML IV SCH ×2 (08:49→08:50)
[2016-10-22] MEDS: ASPIRIN EC 81 MG TABLET PO SCH (08:50)
[2016-10-22] MEDS: DOXAZOSIN 1 MG TABLET PO SCH (08:50)
[2016-10-22] MEDS: METOPROLOL TARTRATE 25 MG TABLET PO SCH ×2 (08:50→21:34)
[2016-10-22] MEDS: CYCLOBENZAPRINE 10 MG TABLET PO SCH ×4 (08:50→21:34)
[2016-10-22] MEDS: ALLOPURINOL 100 MG TABLET PO SCH ×2 (08:50→21:34)
[2016-10-22] MEDS: METOCLOPRAMIDE 10 MG/10 ML UDCUP PO SCH ×4 (08:51→21:33)
[2016-10-22] MEDS: POLYETHYLENE GLYCOL POWDER 17 GM PACK PO SCH ×2 (08:51→21:33)
--- NOTE | 2016-10-22 13:24 | Nephrology Progress Note ---
Nephrology - PN: Subj Interval history: The patient is resting. Did have some nausea this afternoon. Exam (PN)-Nephrology - Vital Signs Vital signs: Period Temp Pulse Resp BP Sys/Wilde Pulse Ox Last 24 Hr 97.7 F-98.6 F 78-99 17-20 100-133/54-78 94-99 - General Appearance General appearance: well-developed, well-nourished EENT: ATNC Neck: supple Respiratory: clear Cardiology: no edema, regular rate, regular rhythm, irregular rhythm Gastrointestinal: normoactive bowel sounds, no tenderness Neurologic: alert and oriented x3 Musculoskeletal: no clubbing Psychiatric: mood/affect appropriate - Lab 10/19/16 07:52 10/19/16 07:52 Most recent lab results Calcium 7.8 MG/DL (8.5-10.1) L 10/19/16 07:52 Assessment and Plan (1) A-fib Status: Chronic Assessment and plan: rate controlled Current Visit: No (2) Diabetes mellitus Status: Chronic Current Visit: No Qualifiers: Diabetes mellitus type: type 2 (3) Atrial fibrillation Status: Chronic Current Visit: No Qualifiers: Atrial fibrillation type: paroxysmal Qualified Code(s): I48.0 - Paroxysmal atrial fibrillation (4) CKD (chronic kidney disease) stage 3, GFR 30-59 ml/min Status: Chronic Assessment and plan: Renal function is at baseline. Current Visit: No (5) Rheumatoid arthritis Status: Chronic Current Visit: No (6) Cough Status: Acute Assessment and plan: Guaifenesin with codeine. Current Visit: Yes
[2016-10-22] MEDS: DONEPEZIL 5 MG TABLET PO SCH (21:33)
[2016-10-22] MEDS: TEMAZEPAM 15 MG CAPSULE PO PRN (21:34)
[2016-10-22] MEDS: ONDANSETRON 4 MG/2 ML VIAL IV PRN (22:04)
[2016-10-23] MEDS ORDERED: PROPOFOL 200 MG/20 ML VIAL IV ONE (08:00)
[2016-10-23] MEDS ORDERED: LIDOCAINE 2% 5 ML VIAL ONE (08:00)
[2016-10-23] MEDS: METOPROLOL TARTRATE 25 MG TABLET PO SCH (08:06)
[2016-10-23] MEDS: DOXAZOSIN 1 MG TABLET PO SCH (08:06)
[2016-10-23] MEDS: ASPIRIN EC 81 MG TABLET PO SCH (08:06)
[2016-10-23] MEDS: CYCLOBENZAPRINE 10 MG TABLET PO SCH ×2 (08:06→12:30)
[2016-10-23] MEDS: PANTOPRAZOLE 40 MG TABLET PO SCH (08:06)
[2016-10-23] MEDS: METOCLOPRAMIDE 10 MG/10 ML UDCUP PO SCH ×2 (08:06→12:31)
[2016-10-23] MEDS: POLYETHYLENE GLYCOL POWDER 17 GM PACK PO SCH (08:06)
[2016-10-23] MEDS: ALLOPURINOL 100 MG TABLET PO SCH (08:07)
--- NOTE | 2016-10-23 11:11 | History and Physical Update ---
History and Physical Update - Physical Exam Mental Status: alert and oriented Heart: regular rate and rhythm Lung: clear to auscultation Abdomen: within normal limits Vitals: within normal limits
--- NOTE | 2016-10-23 11:13 | Operative Note ---
Date of procedure: 10/23/16 Pre-op diagnosis: Nausea vomiting with suspected gastroparesis Procedure: EGD with electrocautery snare polypectomy 81-year-old female with nausea and vomiting gastric emptying scan suggests gastroparesis. She has no documented history of diabetes mellitus is now for upper endoscopy to exclude gastric outlet obstructions as a source of her gastroparesis. Informed symptoms obtained the patient She was sedated with MAC anesthesia per anesthesia protocol Patient placed in left lateral decubitus position the Olympus flexible video upper endoscope was inserted in the oral cavity under direct vision the esophagus intubated. Findings: Esophagus-normal esophageal mucosa no significant esophagitis stricture or varices were identified. Stomach-normal insufflation no retained food is seen. There is an 8 mm polyp pedunculated in the mid body of the stomach this was snare removed and sent for pathology. Remaining stomach is remarkable for some mild gastritis no ulcers were seen no mass lesions were noted throughout the body fundus cardia or antrum the stomach. Pylorus-normal Duodenum-normal from the bulb and duodenum to the third portion of duodenum. The procedure was terminated and tolerated the procedure well she is discharged recovery in good condition. Postop diagnosis: 1. Gastric [id number]-gi path 2. Gastroparesis good response to Reglan will continue 3. Mild gastritis continue PPI treatment 4. Okay to go from my standpoint she can follow-up with her primary care physician and call if needed. Anesthesia: MAC Surgeon / Physician: Justin Vickers Estimated blood loss: none Specimens: other (Gastric polyp greater curvature mid body) Condition: stable Disposition: post procedure unit Results - Labs CBC & BMP: 10/19/16 07:52 10/19/16 07:52 Discharge Plan - Discharge Medications No Action Donepezil HCl 5 mg PO BEDTIME Allopurinol [Zyloprim] 100 mg PO BID Furosemide Tab [Lasix Tab] 40 mg PO BID DIURETIC PRN PRN Reason: Edema Temazepam 15 mg PO BEDTIME PRN PRN Reason: Insomnia Pantoprazole Tab [Protonix Tab] 40 mg PO DAILY #30 tablet Aspirin EC Tab 81 mg PO DAILY hydroCHLOROthiazide [Hydrochlorothiazide] 25 mg PO DAILY Metoprolol Tartrate Tab [Lopressor Tab] 25 mg PO BID Hydralazine HCl 100 mg PO BID HYDROcodone/ACETAMIN 5-325 [[place] 5-325] 1 tablet PO DAILY PRN PRN Reason: Pain Cyclobenzaprine [Flexeril] 7.5 mg PO Q6HR Doxazosin [Cardura] 2 mg PO DAILY Potassium Chloride [Klor-Con M20] 1 tablet PO DAILY PRN PRN Reason: Edema - Follow Up or Referral - Forms/Instructions
--- NOTE | 2016-10-23 11:29 | Anesthesia Post-Op ---
Anesthesia Post OP - Post Ansesthetic Evaluation Patient seen in post op: Yes Resp: within normal limits CV: within normal limits Mental: within normal limits Temp: within normal limits [id number]: within normal limits Nausea and Vomiting: within normal limits Pain: within normal limits
[2016-10-23 11:59] VITALS: BP 143/76
--- NOTE | 2016-10-23 13:01 | Discharge Summary ---
Hospital Course - Hospital Course Hospital Course: This hospitalization included patient admitted for nausea vomiting and abdominal discomfort. She initially had a KUB which was unremarkable. Moreover , the abdominal ultrasound was normal. However, the symptoms of nausea continued. Renal function remained at baseline. GI was consulted. She had a gastric emptying study which suggested gastroparesis. She had a follow up EGD with polypectomy. It was recommended for the patient to continue with PPI and the reglan. The rest of the hospitalization has been unremarkable. No fevers or chills. Diagnosis - Discharge Diagnosis (1) A-fib Status: Chronic (2) Diabetes mellitus Status: Chronic (3) Atrial fibrillation Status: Chronic (4) CKD (chronic kidney disease) stage 3, GFR 30-59 ml/min Status: Chronic (5) Rheumatoid arthritis Status: Chronic (6) Cough Status: Acute (7) Gastroparesis Status: Acute Discharge Plan - Discharge Data Disposition: Disch To Home/Self Care Condition at Discharge: Stable Discharge Diet: advance to your usual diet - Discharge Medications New Metoclopramide Liquid [Reglan Liquid] 5 mg PO ACHS #120 ml Continue Donepezil HCl 5 mg PO BEDTIME Allopurinol [Zyloprim] 100 mg PO BID Furosemide Tab [Lasix Tab] 40 mg PO BID DIURETIC PRN PRN Reason: Edema Temazepam 15 mg PO BEDTIME PRN PRN Reason: Insomnia Pantoprazole Tab [Protonix Tab] 40 mg PO DAILY #30 tablet Aspirin EC Tab 81 mg PO DAILY Metoprolol Tartrate Tab [Lopressor Tab] 25 mg PO BID Hydralazine HCl 100 mg PO BID HYDROcodone/ACETAMIN 5-325 [[place] 5-325] 1 tablet PO DAILY PRN PRN Reason: Pain Cyclobenzaprine [Flexeril] 7.5 mg PO Q6HR Doxazosin [Cardura] 2 mg PO DAILY Potassium Chloride [Klor-Con M20] 1 tablet PO DAILY PRN PRN Reason: Edema Discontinued hydroCHLOROthiazide [Hydrochlorothiazide] 25 mg PO DAILY - Follow Up or Referral - Forms/Instructions Additional Discharge Instructions: Return to clinic in one month with BMP and CBC. Exam - Constitutional Vitals: Period Temp Pulse Resp BP Sys/Wilde Pulse Ox Last 24 Hr 97.2 F-98.3 F 79-101 16-23 110-143/62-079 0-100 General appearance: over weight - Head Head exam: Present: normal inspection - Eye Eye exam: Present: EOMI Pupils: Present: FELIX - Respiratory Respiratory exam: Present: clear to auscultation bilaterally - GI/Abdominal GI/Abdominal exam: Present: normal bowel sounds - Back Exam Back exam: Present: normal inspection - Neurological Exam Neurological exam: Present: alert, oriented X3 - Psychiatric Psychiatric exam: Present: normal affect - Skin Skin exam: Present: normal color DS: Provider Date of admission: 10/15/16 14:10 Primary care physician: Brandon Escboar Jr., MD Attending physician on admission: Brandon Escobar Jr., MD Consults: 10/15/16 15:35 Consult to Dietitian [CONS] Routine Reason for Dietitian: Other 10/15/16 16:34 Consult to Pharmacy [CONS] Routine Reason for Pharmacy Consult: Adjust Meds Renal Funct 10/19/16 13:33 Consult to Physician [CONS] Routine Comment: abdominal pain Consulting Provider: Justin Vickers When should Consulting Provider be notified: Now Person Notified: Sivan Date Notified: 10/19/16 Time Notified: 14:32 Discharging clinician: Brandon Escobar Jr., MD
== END 2016-10-23 14:44 | disposition home or self-care (01) | DRG 392 ==
LOC: N.5E 14:10
PROVIDERS: ADMIT Internal Medicine Nephrology; ATTEND Internal Medicine Nephrology

== ENCOUNTER 2017-03-25 15:04 | Inpatient (IN) ==
[2017-03-25] MEDS ORDERED: traMADol 50 MG TABLET PO PRN (16:38)
[2017-03-25] MEDS ORDERED: ACETAMINOPHEN 325 MG TABLET PO PRN (16:38)
[2017-03-25] MEDS ORDERED: NITROGLYCERIN SL 0.4 MG TABLET SL ONE (17:32)
[2017-03-25] MEDS ORDERED: ASPIRIN CHEW 81 MG TABLET PO ONE (17:37)
--- NOTE | 2017-03-25 17:39 | Order Completion Report ---
See report scanned to EMR
[2017-03-25] MEDS ORDERED: DILTIAZEM 50 MG/10 ML VIAL IV ONE ×2 (18:29→18:31)
[2017-03-25 18:30] LABS: Free T4 (Free Thyroxine) 1.16 NG/DL (0.76-1.46); Thyroid Stimulating Hormone 0.998 uIU/ml (0.358-3.74); Troponin I Only 0.019 NG/ML (0.00-0.045)
--- NOTE | 2017-03-25 18:30 | XRay Report ---
Portable chest. Indication: Shortness of breath. Comparison: October 16, 2016. The cardiac silhouette is enlarged. There is heavy calcific plaque present within the aortic knob. Bilateral basilar infiltrates and pleural effusions have developed. The pulmonary vasculature is prominent. Severe degenerative changes are present within both shoulders with moderate degenerative changes of the spinal column. Impression: Findings consistent with severe congestive heart failure. Follow-up recommended. PROCEDURE INTERPRETED AT [facility] DEPARTMENT OF RADIOLOGY Final Report Signed by: Dr. Toshia Bustillo
[2017-03-25] MEDS: DILTIAZEM INJ 100 MG in SODIUM CHLORIDE 0.9% 100 ML IV SCH (18:39)
--- NOTE | 2017-03-25 19:03 | Cardiology Consult Note ---
History of Present Illness - Data of Consult Patient: known to practice within the last 3 years - Consult Narrative Reason for consult: Shortness of breath atrial flutter History of present illness: Cardiology consult 82-year-old woman admitted with increased shortness of breath and fatigue. For the past 3 or 4 days she has been very breathless and has no energy. Her pulse is irregular and EKG shows atrial flutter with ST-T wave changes. The chest x- ray shows cardiomegaly with congestive heart failure with bilateral effusions left greater than right and a calcified aorta. The patient has chronically for the baseline creatinine around 3.0 and is followed by Dr. Escobar. Blood pressure is currently 190/94 in the right arm by me. the pulse is 90-100 and slightly irregular. O2 sat 95% on 2 L cannula. She is quite pleasant and in no acute distress at rest. The patient has chronic hypertension and has been under treatment for 30 years. No history of stroke. No history of myocardial infarction. She is status post pericardiocentesis August 09, [address] Paulino. Cardiac cath at that time showed mild disease only in the LAD and circumflex and a moderate 50-60% calcified ostial right coronary. The patient has a history of paroxysmal atrial fibrillation and is currently taking Lopressor 25 mg twice daily and aspirin 81 mg daily. She is status post Mabel-Madison tear with upper GI bleed requiring transfusion August 31, 2015. INR was 6 at that time. She has been off Coumadin since that time due to her fragile state and unsteady gait. She has a walker at home for just a few steps but is essentially wheelchair-bound according to her daughter Jonna who she lives with in [place]. No history of diabetes. She does have chronic anemia. She also has rheumatoid arthritis. She quit smoking in 1979. She has a rare glass of wine only. 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 EEG done October 23, 2016 showed a gastric polyp which was snared and mild gastritis by Dr. Maikel Vickers. The patient is 5 feet tall and weighs 125 pounds. She has lost 40 pounds since June 2016. She has a poor appetite and has lost interest in food. Home Meds Lopressor 25 mg twice daily and aspirin 81 mg daily. Review of systems chronic dyspnea and easy fatigability. Appetite fair at best. Denies palpitations or syncope. She does have GE reflux symptoms. She avoids bedtime snacks and has dinner by 4 PM. She sleeps on one pillow and has nocturia 2 or 390 which is chronic. There is a trace leg edema. Denies melena. Blood pressure 190/94 in the right arm pulse is around 100 and irregular. O2 sat 95% 2 L. Bilateral arcus. Thank bilateral carotid bruits. Decreased breath sounds with dullness in both bases and bibasilar crackles. Irregular rhythm with soft systolic murmur. No AI. M soft benign. Femoral pulses are 1+ with bilateral bruits. Distal pulses are 1+ there is 1+ ankle edema. Impression Congestive heart failure. Chest x-ray shows cardiomegaly with bilateral effusions left greater than right New onset atrial flutter duration unknown Long-standing hypertension Mild mild aortic stenosis by exam Rheumatoid arthritis Advanced age and frailty Remote tobacco abuse Chronic renal failure baseline creatinine around 3.0 40 pound weight loss since June 2014. Weight today 825 pounds EGD October 23, 2016 showed gastric polyp which was snared and mild gastritis by Dr. Maikel Vickers Status post Mabel-Madison tear with Coumadin phasicity August 31, 2015 Status post pericardiocentesis August 09, 2015 Chronic anemia Cardiac cath August 09 2015 showed mild disease in the LAD and circumflex and a calcified 50-60% ostial right coronary Plan IV Cardizem Echo Doppler IV Lasix Begin hydralazine for blood pressure Supplemental O2 Frail patient with history of upper GI bleed. She is not a candidate for anticoagulation 40 pound weight loss since June 2016 with poor appetite Findings and plan discussed with patient and with her daughter Jonna CC: Brandon Escobar Jr., MD - Home Medications and Allergies Home Medications: Home Medications Medication Instructions Recorded Confirmed Type Aspirin EC Tab 81 mg PO DAILY 01/12/16 03/25/17 History Metoprolol Tartrate Tab [Lopressor 25 mg PO BID 09/18/16 03/25/17 History Tab] Allergies/Adverse Reactions: Allergies Allergy/AdvReac Type Severity Reaction Status Date / Time simvastatin [From Zocor] AdvReac Gastrointestinal Verified 09/18/16 22:15 Upset arthritis med Allergy Intermediate RASH Uncoded 09/18/16 22:15 Medical,Surgical,& Family Hx - Medical History Cardio: History of: Cardiac Dysrhythmia (atrial fib), Hypertension Psychological: No history of: Anxiety Disorders, ADHD, Behavior Problems, Bipolar Disorder, Depression, Previous Suicide Attempt, Psychiatric/Substance Abuse Tx, Schizophrenia, Violent Behavior, Psychiatric Problems Neurology: No history of: Seizures HEENT: History of: Eye Problem (retinal bleed) Endocrine: No history of: Diabetes Mellitus (NIDDM) Rheumatology: History of;: Gout, Rheumatoid Arthritis Renal: History of: Renal Failure (chronic class III previous had acute the recovered) Musculoskeletal: History of: Musculoskeletal Problems (the patient has arthritic changes. She states that she has RA) No history of: Amputation Hematology: History of: Blood Transfusion Reaction (1978) Other: History of: Miscellaneous Medical Problems (large pericardial effusion status post pericardiocentesis) - Surgical History Cardiac Surgeries: Patient Denies: Cardiac Catheterization Thoracic Surgeries: Patient denies;: Organ Transplant, Lobectomy Neurologic Surgeries: Patient denies: Neurologic Surgery HEENT Surgeries: Surgical HX of: Eye Surgery Patient denies: Thyroid Surgery, Tonsilectomy & Adenoidectomy Reproductive Surgeries: Surgical HX of;: Hysterectomy Patient denies;: Genitourinary Surgery, Gynecologic Surgery - Family History Family History: Reports;: Family Heart Disease, Family Hypertension - Social History Smoking Status: Never smoker Frequency of Alcohol Use: None Type of Drug Use: None Physical Examination Vital Signs Temp Pulse Resp BP Pulse Ox 97.9 F 86 20 196/129 94 L 03/25/17 17:01 03/25/17 17:01 03/25/17 17:01 03/25/17 17:01 03/25/17 17:01 Result/EKG - Labs Labs: Laboratory Results - last 24 hr 03/25/17 03/25/17 17:27 17:27 Total Creatine Kinase 29 CK-MB (CK-2) 2.4 Troponin I 0.019 B-Natriuretic Peptide 1306 H Free T4 1.16 TSH 3rd Generation 0.998
[2017-03-25] MEDS: ENOXAPARIN 30 MG/0.3 ML SYRINGE SUBCUT SCH (19:04)
--- NOTE | 2017-03-25 19:24 | Nephrology History & Physical ---
History of Present Illness Chief complaint: shortness of breath History of present illness: Ms. Cash is an 82 year old female with history of atrial fibrillation, CKD, HTN , pericardial effusion who is followed by me in my CKD clinic. The patient complained of shortness of breath and fatigue for the past several days. She mentions that she has been feeling fatigue and has not been able to sleep due to shortness of breath. She recently had some adjustment in her antihypertensive medications. She was found to be in atrial fibrillation. Her chest xray showed evidence of volume overload. No fevers or chills. Home Medications Medication Instructions Recorded Confirmed Type Aspirin EC Tab 81 mg PO DAILY 01/12/16 03/25/17 History Metoprolol Tartrate Tab [Lopressor 25 mg PO BID 09/18/16 03/25/17 History Tab] Allergies Allergy/AdvReac Type Severity Reaction Status Date / Time simvastatin [From Zocor] AdvReac Gastrointestinal Verified 09/18/16 22:15 Upset arthritis med Allergy Intermediate RASH Uncoded 09/18/16 22:15 Review of Systems Constitutional: fatigue, lethargy, no anorexia Cardiovascular: dyspnea, dyspnea on exertion, edema Respiratory: dyspnea Gastrointestinal: no abdominal pain Medical,Surgical,& Family Hx - Medical History Cardio: History of: Cardiac Dysrhythmia (atrial fib), Hypertension Psychological: No history of: Anxiety Disorders, ADHD, Behavior Problems, Bipolar Disorder, Depression, Previous Suicide Attempt, Psychiatric/Substance Abuse Tx, Schizophrenia, Violent Behavior, Psychiatric Problems Neurology: No history of: Seizures HEENT: History of: Eye Problem (retinal bleed) Endocrine: No history of: Diabetes Mellitus (NIDDM) Rheumatology: History of;: Gout, Rheumatoid Arthritis Renal: History of: Renal Failure (chronic class III previous had acute the recovered) Musculoskeletal: History of: Musculoskeletal Problems (the patient has arthritic changes. She states that she has RA) No history of: Amputation Hematology: History of: Blood Transfusion Reaction (1978) Other: History of: Miscellaneous Medical Problems (large pericardial effusion status post pericardiocentesis) - Surgical History Cardiac Surgeries: Patient Denies: Cardiac Catheterization Thoracic Surgeries: Patient denies;: Organ Transplant, Lobectomy Neurologic Surgeries: Patient denies: Neurologic Surgery HEENT Surgeries: Surgical HX of: Eye Surgery Patient denies: Thyroid Surgery, Tonsilectomy & Adenoidectomy Reproductive Surgeries: Surgical HX of;: Hysterectomy Patient denies;: Genitourinary Surgery, Gynecologic Surgery - Family History Family History: Reports;: Family Heart Disease, Family Hypertension - Social History Smoking Status: Never smoker Frequency of Alcohol Use: None Type of Drug Use: None Exam - Nephrology - Vital Signs Vital signs: Vital Signs Temp Pulse Pulse Resp BP BP Pulse Ox 03/25/17 18:39 112 H 216/115 03/25/17 17:01 97.9 F 86 20 196/129 94 L - General Appearance General appearance: well-developed, moderate distress, fatigue EENT: ATNC, PERRL Neck: supple Respiratory: rales Cardiology: edema (2 plus), regular rate, regular rhythm Gastrointestinal: normoactive bowel sounds, no tenderness Integumentary: no rash Neurologic: alert and oriented x3, CN 3-12 intact Musculoskeletal: no clubbing Psychiatric: mood/affect appropriate Assessment and Plan (1) Atrial fibrillation Status: Chronic Assessment and plan: Serial cardiac enzymes. Appreciate input from cardiology. Place on telemetry Current Visit: No Qualifiers: Atrial fibrillation type: paroxysmal Qualified Code(s): I48.0 - Paroxysmal atrial fibrillation (2) Chronic kidney disease Status: Chronic Current Visit: No Qualifiers: Chronic kidney disease stage: stage 3 (moderate) Qualified Code(s): N18.3 - Chronic kidney disease, stage 3 (moderate) (3) Pneumonia Status: Resolved Current Visit: No Qualifiers: Laterality: left (4) Pleural effusion Status: Acute Assessment and plan: lasix 60mg q 6 hours Current Visit: No (5) CKD (chronic kidney disease) stage 3, GFR 30-59 ml/min Status: Chronic Current Visit: No
[2017-03-25] MEDS ORDERED: SOTALOL 80 MG TABLET PO SCH (21:00)
[2017-03-25] MEDS: FUROSEMIDE 40 MG/4 ML VIAL IV SCH (21:23)
[2017-03-25] MEDS: METOPROLOL TARTRATE 25 MG TABLET PO SCH (21:24)
[2017-03-25] MEDS: cloNIDine 0.1 MG TABLET PO PRN (21:25)
[2017-03-25] MEDS: hydrALAZINE 25 MG TABLET PO SCH (21:25)
[2017-03-25] MEDS: DOCUSATE SODIUM 100 MG CAPSULE PO SCH (21:25)
[2017-03-25 21:59] LABS: Basophils # 0.1 10*3/uL (0.0-0.2); Basophils % 0.7 % (0.0-0.8); Eosinophils # 0.1 10*3/uL (0.0-0.87); Eosinophils % 0.9 % (0.00-10.9); Hematocrit 32.6 VOL% (35.7-47.0); Hemoglobin 10.4 GM/DL (12.0-16.0); Immature Granulocytes % 0.2 %; Immature Granulocytes Absolute 0.02 #; Lymphocytes # 2.4 10*3/uL (1.4-4.0); Lymphocytes % 22.4 % (21.3-54.2); Mean Corpuscular HGB Conc 31.9 GM/DL (32-36); Mean Corpuscular Hemoglobin 31 PG (27-34); Mean Corpuscular Volume 96.7 FL (87-102); Mean Platelet Volume 10.9 FL (9.6-12.0); Monocytes # 0.9 10*3/uL (0.11-0.8); Monocytes % 8.4 % (1.7-12.7); Neutrophils # 7.3 10*3/uL (1.4-7.4); Neutrophils % 67.4 % (38.7-73.9); Platelet Count 308 T/CUMM (130-400); Red Blood Count 3.37 MC/CUMM (3.8-5.5); Red Cell Distribution Width 14.6 % (9.3-17.3); White Blood Count 10.9 T/CUMM (4-12)
[2017-03-26 01:17] LABS: Basophils % 0.3 % (0.0-0.8); Eosinophils # 0.1 10*3/uL (0.0-0.87); Eosinophils % 1.5 % (0.00-10.9); Hematocrit 25.9 VOL% (35.7-47.0); Hemoglobin 8.7 GM/DL (12.0-16.0); Immature Granulocytes % 0.3 %; Immature Granulocytes Absolute 0.02 #; Lymphocytes # 1.3 10*3/uL (1.4-4.0); Lymphocytes % 19.3 % (21.3-54.2); Mean Corpuscular HGB Conc 33.6 GM/DL (32-36); Mean Corpuscular Hemoglobin 31 PG (27-34); Mean Corpuscular Volume 92.5 FL (87-102); Mean Platelet Volume 10.2 FL (9.6-12.0); Monocytes # 0.7 10*3/uL (0.11-0.8); Monocytes % 10.6 % (1.7-12.7); Neutrophils # 4.5 10*3/uL (1.4-7.4); Platelet Count 228 T/CUMM (130-400); Red Cell Distribution Width 14.6 % (9.3-17.3); White Blood Count 6.5 T/CUMM (4-12)
[2017-03-26 01:49] LABS: Albumin 2.7 G/DL (3.4-5.0); Calcium 8.4 MG/DL (8.5-10.1); Magnesium 1.9 MG/DL (1.8-2.4); Phosphorous 3.9 MG/DL (2.5-4.9); Potassium 4.2 MMOL/L (3.5-5.1)
[2017-03-26] MEDS: FUROSEMIDE 40 MG/4 ML VIAL IV SCH ×4 (06:47→21:14)
[2017-03-26 09:34] LABS: Troponin I Only 0.026 NG/ML (0.00-0.045)
[2017-03-26] MEDS: DILTIAZEM INJ 100 MG in SODIUM CHLORIDE 0.9% 100 ML IV SCH ×2 (09:39→19:20)
--- NOTE | 2017-03-26 09:42 | Cardiology Progress Note ---
<Magda Rico E - Last Filed: 03/26/17 09:30> Assessment and Plan - Time spent with patient Time spent with patient: Less than 30 minutes (1) Congestive heart failure Status: Acute Assessment and plan: See plan of care listed below. Current Visit: Yes Qualifiers: Congestive heart failure type: unspecified congestive heart failure type Congestive heart failure chronicity: acute on chronic Qualified Code(s): I50.9 - Heart failure, unspecified (2) Atrial flutter Status: Acute Assessment and plan: See plan of care listed below. Current Visit: Yes (3) Atrial fibrillation Status: Chronic Assessment and plan: See plan of care listed below. Current Visit: No Qualifiers: Atrial fibrillation type: paroxysmal Qualified Code(s): I48.0 - Paroxysmal atrial fibrillation (4) Hypertension Status: Chronic Assessment and plan: See plan of care listed below. Current Visit: Yes (5) Aortic stenosis Status: Chronic Assessment and plan: See plan of care listed below. Current Visit: No (6) Rheumatoid arthritis Status: Chronic Assessment and plan: See plan of care listed below. Current Visit: No (7) Frailty Status: Chronic Assessment and plan: See plan of care listed below. Current Visit: Yes (8) Advanced age Status: Chronic Assessment and plan: See plan of care listed below. Current Visit: Yes (9) Tobacco abuse Status: Resolved Assessment and plan: See plan of care listed below. Current Visit: No (10) Chronic kidney disease Status: Chronic Assessment and plan: See plan of care listed below. Current Visit: No Qualifiers: Chronic kidney disease stage: stage 4 (severe) Qualified Code(s): N18.4 - Chronic kidney disease, stage 4 (severe) (11) Anemia Status: Chronic Assessment and plan: See plan of care listed below. Current Visit: Yes Qualifiers: Chronic kidney disease stage: stage 4 (severe) (12) History of gastritis Status: Chronic Assessment and plan: See plan of care listed below. Current Visit: No (13) Non-occlusive coronary artery disease Status: Chronic Assessment and plan: See plan of care listed below. Current Visit: No Cardiology - PN: Subj Interval history: Supply Officer: Dr. Alcaraz Emergency Department Clinician: Dr. Escobar SUMMARY: Ms. Cash is an 82y/o WF admitted with increased shortness of breath and fatigue. She was noted to have an irregular pulse with EKG showing atrial flutter with ST-T wave changes. The chest x-ray shows cardiomegaly with congestive heart failure with bilateral effusions left greater than right and a calcified aorta. We were consulted to aid in her management. MARCH 26, 2017: We are continuing to follow Ms. Cash for her CHF and atrial flutter. She is seen sitting on the side of the bed this morning in no acute distress. She remains in atrial flutter. Her heart rates dropped into the 50s during the night and her Cardizem infusion was turned off for several hours; however, this morning, her rates returned to the 120s and Cardizem was turned back on. Systolic blood pressures have been in the 180s this morning. We will increase her Lopressor to 50mg PO BID and increase hydralazine to 50mg PO TID and try to wean her off of IV Cardizem. Potassium is 4.2 today, creatinine 1.8. Cardiac biomarkers have been negative. REVIEW OF SYSTEMS: CARDIAC: Patient reports palpitations, denies chest pain. RESPIRATORY: Patient reports mild shortness of breath. IMPRESSION/PLAN: - CONGESTIVE HEART FAILURE: Continue IV Lasix 60mg Q6H. She continues to have some BLE edema and dullness in her lung bases. - NEW ONSET ATRIAL FLUTTER: Duration unknown. - HISTORY OF PAF: She has been taking Lopressor 25mg po BID and ASA 81 mg po daily. - LONG-STANDING HYPERTENSION: The patient has chronic hypertension and has been under treatment for 30 years. Blood pressures remain elevated this morning despite being on cardizem infusion at 10mg/hr. We will continue to adjust her medications. - MILD AORTIC STENOSIS: Per exam. Echocardiogram is pending. - RHEUMATOID ARTHRITIS: Chronic. - ADVANCED AGE/FRAILTY: She has a walker at home for just a few steps but is essentially wheelchair-bound according to her daughter Jonna who she lives with in [place]. - REMOTE TOBACCO ABUSE: She quit smoking in 1979. - CHRONIC RENAL FAILURE: Followed by Dr. Escobar. - CHRONIC ANEMIA: She is status post Mabel-Madison tear with upper GI bleed requiring transfusion August 31, 2015. INR was 6 at that time. She has been off Coumadin since that time due to her fragile state and unsteady gait. H&H 8.7 and 25.9 today. Will continue to monitor CBC. - HISTORY OF GASTRITIS: EGD October 23, 2016 showed gastric polyp which was snared and mild gastritis by Dr. Maikel Vickers. 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 - MILD NONOBSTRUCTIVE CAD: Cardiac cath August 09 2015 showed mild disease in the LAD and circumflex and a calcified 50-60% ostial right coronary. - S/P PERICARDIOCENTESIS: Done 08/09/15. Exam (Progress Note) - Constitutional Vitals: Period Temp Pulse Resp BP Sys/Wilde Pulse Ox Last 24 Hr 97.9 F-98.8 F 62-112 17-20 146-216/61-129 90-98 Exam: General appearance: Appears well. Pleasant and cooperative. Overweight, no acute distress. Head exam: Present: normal inspection, normocephalic, atraumatic. Absent: hematoma, laceration Eye exam: Present: EOMI. Absent: conjunctival injection, nystagmus, periorbital swelling, scleral icterus, laceration to eyelids, jaundice Pupils: Present: PERRL. Absent: constricted, dilated, fixed, irregular, unequal ENT exam: Present: normal exam, normal external ear exam, mucous membranes moist. Neck exam: Present: normal inspection, midline trachea. Bilateral carotid bruit. Absent: masses, lymphadenopathy, tenderness, thyromegaly, Respiratory exam: Present: Decreased breath sounds, dullness to bilateral bases with bibasilar crackles posteriorly. Absent: accessory muscle use, chest wall tenderness, rhonchi, wheezing. Cardiovascular exam: Present: Irregular rate and rhythm. Systolic murmur. Absent: gallop, rubs GI/Abdominal exam: Present: normal bowel sounds, soft. Absent: distended, firm , hernia, mass, tenderness. Extremities exam: Present: Normal Gait, No Clubbing, No Cyanosis, Upper Extr. Pulses 2+, Lower Extr. Pulses diminished, 1-2+ BLE edema. Capillary refill less than 3 seconds. Musculoskeletal: Present: No Fluid Collection, No Pain, Normal Range of Motion Back exam: Present: normal inspection. Absent: muscle spasm, vertebral tenderness Neurological exam: Present: awake, alert, oriented X3, Moves all extremities well without hemiparesis or paralysis. Grossly intact without resting or essential tremor Psychiatric exam: Present: normal affect, normal mood Skin exam: Present: normal color, warm, dry, intact. Absent: cyanosis, diaphoretic, rash, urticaria Result/EKG - Labs CBC & BMP: 03/26/17 01:00 03/26/17 01:00 Lab Results: I have reviewed the past 24 hour labs Labs: Laboratory Results - last 24 hr 03/25/17 03/25/17 03/25/17 17:13 17:27 17:27 WBC 10.9 RBC 3.37 L Hgb 10.4 L Hct 32.6 L MCV 96.7 MCH 31 MCHC 31.9 L RDW 14.6 Plt Count 308 MPV 10.9 Neut % (Auto) 67.4 Lymph % (Auto) 22.4 [place] % (Auto) 8.4 Eos % (Auto) 0.9 Baso % (Auto) 0.7 Neut # (Auto) 7.3 Lymph # (Auto) 2.4 [place] # (Auto) 0.9 H Eos # (Auto) 0.1 Baso # (Auto) 0.1 Immature Gran % 0.2 Nucleated RBC % 0.0 Immature Gran # 0.02 Nucleated RBCs # 0.00 Immature Plt Fraction 0.0 Sodium Potassium Chloride Carbon Dioxide Anion Gap BUN Creatinine GFR Calculation BUN/Creatinine Ratio Glucose Calculated Osmolality Calcium Phosphorus Magnesium Total Creatine Kinase 29 CK-MB (CK-2) 2.4 Troponin I 0.019 B-Natriuretic Peptide 1306 H Albumin Free T4 1.16 TSH 3rd Generation 0.998 03/26/17 03/26/17 03/26/17 01:00 01:00 01:00 WBC 6.5 D RBC 2.80 L Hgb 8.7 L Hct 25.9 L MCV 92.5 MCH 31 MCHC 33.6 RDW 14.6 Plt Count 228 D MPV 10.2 Neut % (Auto) 68.0 Lymph % (Auto) 19.3 L [place] % (Auto) 10.6 Eos % (Auto) 1.5 Baso % (Auto) 0.3 Neut # (Auto) 4.5 Lymph # (Auto) 1.3 L [place] # (Auto) 0.7 Eos # (Auto) 0.1 Baso # (Auto) 0.0 Immature Gran % 0.3 Nucleated RBC % 0.0 Immature Gran # 0.02 Nucleated RBCs # 0.00 Immature Plt Fraction 0.0 Sodium 143 Potassium 4.2 Chloride 109 H Carbon Dioxide 26 Anion Gap 12.2 BUN 21 H Creatinine 1.80 H GFR Calculation 23 BUN/Creatinine Ratio 11.00 Glucose 98 Calculated Osmolality 287.0 Calcium 8.4 L Phosphorus 3.9 Magnesium 1.9 Total Creatine Kinase 23 L D CK-MB (CK-2) 2.5 Troponin I 0.030 B-Natriuretic Peptide Albumin 2.7 L Free T4 TSH 3rd Generation - EKG EKG results: interpreted by me (atrial flutter) <Rancho Membreno - Last Filed: 03/26/17 10:27> Cardiology - PN: Subj Interval history: Cardiology addendum Patient examined chart review discussed with nurse Magda Rico NP. Telemetry shows atrial flutter with a controlled rate on IV Cardizem Blood pressure still running high 168/90 Irregular rhythm with systolic ejection murmur upper right sternal border. No AI Abdomen benign Decreased breath sounds bibasilar crackles 1+ edema Lab data today Sodium 143 potassium 4.2 chloride 109 CO2 26 BUN 21 creatinine 1.8 BNP 1306 glucose 98 negative troponin Impression Congestive heart failure New onset atrial flutter duration unknown Long-standing hypertension Mild aortic stenosis by exam Chronic anemia Chronic renal failure Frailty Plan Increase Lopressor 50 mg twice daily Increase hydralazine 50 mg 3 times daily Echo Doppler pending IV Cardizem Exam (Progress Note) - Constitutional Vitals: Period Temp Pulse Resp BP Sys/Wilde Pulse Ox Last 24 Hr 97.9 F-98.8 F 62-112 17-20 146-216/61-129 90-98 Result/EKG - Labs CBC & BMP: 03/26/17 01:00 03/26/17 01:00 Labs: Laboratory Results - last 24 hr 03/25/17 03/25/17 03/25/17 17:13 17:27 17:27 WBC 10.9 RBC 3.37 L Hgb 10.4 L Hct 32.6 L MCV 96.7 MCH 31 MCHC 31.9 L RDW 14.6 Plt Count 308 MPV 10.9 Neut % (Auto) 67.4 Lymph % (Auto) 22.4 [place] % (Auto) 8.4 Eos % (Auto) 0.9 Baso % (Auto) 0.7 Neut # (Auto) 7.3 Lymph # (Auto) 2.4 [place] # (Auto) 0.9 H Eos # (Auto) 0.1 Baso # (Auto) 0.1 Immature Gran % 0.2 Nucleated RBC % 0.0 Immature Gran # 0.02 Nucleated RBCs # 0.00 Immature Plt Fraction 0.0 Sodium Potassium Chloride Carbon Dioxide Anion Gap BUN Creatinine GFR Calculation BUN/Creatinine Ratio Glucose Calculated Osmolality Calcium Phosphorus Magnesium Total Creatine Kinase 29 CK-MB (CK-2) 2.4 Troponin I 0.019 B-Natriuretic Peptide 1306 H Albumin Free T4 1.16 TSH 3rd Generation 0.998 03/26/17 03/26/17 03/26/17 01:00 01:00 01:00 WBC 6.5 D RBC 2.80 L Hgb 8.7 L Hct 25.9 L MCV 92.5 MCH 31 MCHC 33.6 RDW 14.6 Plt Count 228 D MPV 10.2 Neut % (Auto) 68.0 Lymph % (Auto) 19.3 L [place] % (Auto) 10.6 Eos % (Auto) 1.5 Baso % (Auto) 0.3 Neut # (Auto) 4.5 Lymph # (Auto) 1.3 L [place] # (Auto) 0.7 Eos # (Auto) 0.1 Baso # (Auto) 0.0 Immature Gran % 0.3 Nucleated RBC % 0.0 Immature Gran # 0.02 Nucleated RBCs # 0.00 Immature Plt Fraction 0.0 Sodium 143 Potassium 4.2 Chloride 109 H Carbon Dioxide 26 Anion Gap 12.2 BUN 21 H Creatinine 1.80 H GFR Calculation 23 BUN/Creatinine Ratio 11.00 Glucose 98 Calculated Osmolality 287.0 Calcium 8.4 L Phosphorus 3.9 Magnesium 1.9 Total Creatine Kinase 23 L D CK-MB (CK-2) 2.5 Troponin I 0.030 B-Natriuretic Peptide Albumin 2.7 L Free T4 TSH 3rd Generation 03/26/17 08:28 WBC RBC Hgb Hct MCV MCH MCHC RDW Plt Count MPV Neut % (Auto) Lymph % (Auto) [place] % (Auto) Eos % (Auto) Baso % (Auto) Neut # (Auto) Lymph # (Auto) [place] # (Auto) Eos # (Auto) Baso # (Auto) Immature Gran % Nucleated RBC % Immature Gran # Nucleated RBCs # Immature Plt Fraction Sodium Potassium Chloride Carbon Dioxide Anion Gap BUN Creatinine GFR Calculation BUN/Creatinine Ratio Glucose Calculated Osmolality Calcium Phosphorus Magnesium Total Creatine Kinase 54 D CK-MB (CK-2) 1.8 Troponin I 0.026 B-Natriuretic Peptide Albumin Free T4 TSH 3rd Generation
--- NOTE | 2017-03-26 09:58 | Order Completion Report ---
See report scanned to EMR
[2017-03-26] MEDS: ASPIRIN EC 81 MG TABLET PO SCH (11:00)
[2017-03-26] MEDS: DOCUSATE SODIUM 100 MG CAPSULE PO SCH ×2 (11:01→21:58)
[2017-03-26] MEDS: METOPROLOL TARTRATE 50 MG TABLET PO SCH ×2 (11:02→21:58)
[2017-03-26] MEDS: cloNIDine 0.1 MG TABLET PO PRN (11:02)
[2017-03-26] MEDS: hydrALAZINE 25 MG TABLET PO SCH (11:05)
[2017-03-26] MEDS: METOPROLOL TARTRATE 25 MG TABLET PO SCH (11:05)
[2017-03-26] MEDS: ONDANSETRON 4 MG/2 ML VIAL IV PRN ×2 (15:07→21:13)
--- NOTE | 2017-03-26 15:15 | Order Completion Report ---
See report scanned to EMR
[2017-03-26] MEDS: ENOXAPARIN 30 MG/0.3 ML SYRINGE SUBCUT SCH (18:18)
--- NOTE | 2017-03-26 19:28 | Nephrology Progress Note ---
Nephrology - PN: Subj Interval history: Patient is resting comfortably no acute changes. Breathing is improved. Still remains on Cardizem infusion medicines are being adjusted. Exam (PN)-Nephrology - Vital Signs Vital signs: Period Temp Pulse Resp BP Sys/Wilde Pulse Ox Last 24 Hr 98.0 F-99.5 F 55-98 17-20 122-198/55-96 90-98 - General Appearance General appearance: well-developed, well-nourished, appears started age EENT: ATNC Neck: supple Respiratory: clear Cardiology: no edema, regular rate, irregular rhythm Gastrointestinal: normoactive bowel sounds, no tenderness, no guarding Musculoskeletal: no clubbing Psychiatric: mood/affect appropriate, cooperative - Lab 03/26/17 01:00 03/26/17 01:00 Most recent lab results Calcium 8.4 MG/DL (8.5-10.1) L 03/26/17 01:00 Phosphorus 3.9 MG/DL (2.5-4.9) 03/26/17 01:00 Magnesium 1.9 MG/DL (1.8-2.4) 03/26/17 01:00 Assessment and Plan (1) Atrial fibrillation Status: Chronic Assessment and plan: Appreciate input from cardiology. Place on telemetry Current Visit: No Qualifiers: Atrial fibrillation type: paroxysmal Qualified Code(s): I48.0 - Paroxysmal atrial fibrillation (2) Chronic kidney disease Status: Chronic Current Visit: No Qualifiers: Chronic kidney disease stage: stage 3 (moderate) Qualified Code(s): N18.3 - Chronic kidney disease, stage 3 (moderate) (3) Pleural effusion Status: Acute Assessment and plan: lasix 60mg q 6 hours Continue Lasix repeat chest x-ray in a.m. Current Visit: No (4) CKD (chronic kidney disease) stage 3, GFR 30-59 ml/min Status: Chronic Current Visit: No
[2017-03-27] MEDS: FUROSEMIDE 40 MG/4 ML VIAL IV SCH ×2 (00:38→08:38)
[2017-03-27 05:00] LABS: Basophils % 0.5 % (0.0-0.8); Eosinophils # 0.2 10*3/uL (0.0-0.87); Eosinophils % 3.3 % (0.00-10.9); Hematocrit 28.4 VOL% (35.7-47.0); Hemoglobin 9.3 GM/DL (12.0-16.0); Immature Granulocytes % 0.4 %; Immature Granulocytes Absolute 0.02 #; Lymphocytes # 1.4 10*3/uL (1.4-4.0); Lymphocytes % 24.6 % (21.3-54.2); Mean Corpuscular HGB Conc 32.7 GM/DL (32-36); Mean Corpuscular Hemoglobin 31 PG (27-34); Mean Platelet Volume 10.5 FL (9.6-12.0); Monocytes # 0.7 10*3/uL (0.11-0.8); Monocytes % 12.3 % (1.7-12.7); Neutrophils # 3.3 10*3/uL (1.4-7.4); Neutrophils % 58.9 % (38.7-73.9); Platelet Count 261 T/CUMM (130-400); Red Blood Count 3.02 MC/CUMM (3.8-5.5); Red Cell Distribution Width 14.8 % (9.3-17.3); White Blood Count 5.5 T/CUMM (4-12)
[2017-03-27 05:42] LABS: Calcium 8.4 MG/DL (8.5-10.1)
[2017-03-27 05:43] LABS: Osmolality,Calculated 285.1 MOS/KG (273-304); Potassium 3.9 MMOL/L (3.5-5.1)
--- NOTE | 2017-03-27 08:12 | XRay Report ---
XR chest 2V Date: 03/27/2017 8:00 AM History: Shortness of breath Comparison: 03/25/2017 Technique: PA and lateral chest Findings: Stable cardiomegaly with arterial calcifications. Minimally reduced pleural and parenchymal findings. Osteopenia with degenerative changes. Impression: Minimally improved CHF with persistent moderate bilateral pleural effusions. Osteopenia. PROCEDURE INTERPRETED AT [facility] DEPARTMENT OF RADIOLOGY Final Report Signed by: Dr. Keyanna Machado
[2017-03-27] MEDS: DOCUSATE SODIUM 100 MG CAPSULE PO SCH ×3 (08:38→21:18)
[2017-03-27] MEDS: METOPROLOL TARTRATE 50 MG TABLET PO SCH ×2 (08:38→21:18)
[2017-03-27] MEDS: ASPIRIN EC 81 MG TABLET PO SCH (08:38)
--- NOTE | 2017-03-27 09:37 | Nephrology Progress Note ---
Nephrology - PN: Subj Interval history: Patient is resting comfortably no acute changes. Breathing is improved. Still remains on Cardizem infusion medicines are being adjusted. 03/27/2017. The patient is resting comfortably no acute changes. No shortness of breath. Serum creatinine is 2.3 which is patient's baseline. At this time switch to p.o. Lasix 60 mg twice daily. Exam (PN)-Nephrology - Vital Signs Vital signs: Period Temp Pulse Resp BP Sys/Wilde Pulse Ox Last 24 Hr 98.0 F-99.5 F 55-78 16-20 122-184/55-87 90-95 - General Appearance General appearance: well-developed, well-nourished, frail EENT: ATNC Neck: supple Respiratory: clear Cardiology: regular rate, irregular rhythm Gastrointestinal: normoactive bowel sounds, no tenderness Integumentary: no rash Neurologic: no focal deficit Musculoskeletal: no clubbing Psychiatric: mood/affect appropriate, cooperative - Lab 03/27/17 04:15 03/27/17 04:15 Most recent lab results Calcium 8.4 MG/DL (8.5-10.1) L 03/27/17 04:15 Phosphorus 3.9 MG/DL (2.5-4.9) 03/26/17 01:00 Magnesium 1.9 MG/DL (1.8-2.4) 03/26/17 01:00 Assessment and Plan (1) Atrial fibrillation Status: Chronic Assessment and plan: Appreciate input from cardiology. Place on telemetry Current Visit: No Qualifiers: Atrial fibrillation type: paroxysmal Qualified Code(s): I48.0 - Paroxysmal atrial fibrillation (2) Chronic kidney disease Status: Chronic Current Visit: No Qualifiers: Chronic kidney disease stage: stage 3 (moderate) Qualified Code(s): N18.3 - Chronic kidney disease, stage 3 (moderate) (3) Pleural effusion Status: Acute Assessment and plan: Lasix 60 mg p.o. twice daily. Continues to have pleural effusion. Consult pulmonary for thoracentesis Current Visit: No (4) CKD (chronic kidney disease) stage 3, GFR 30-59 ml/min Status: Chronic Current Visit: No
[2017-03-27] MEDS ORDERED: AMIODARONE INJ 150 MG in DEXTROSE 5% 100 ML IV ONE (10:04)
--- NOTE | 2017-03-27 10:04 | Cardiology Progress Note ---
Cardiology - PN: Subj Interval history: Cardiology note Still short of breath. Telemetry shows controlled atrial flutter. Chest x-ray shows bilateral effusions, left greater than right Blood pressure 140/76 O2 sat 90% on 2 L cannula Irregular rhythm with systolic murmur as before Decreased breath sounds with basilar crackles Abdomen benign No leg edema Echo ejection fraction 55% with moderate biatrial enlargement mitral annular calcification, aortic valve sclerosis, 2+ AI, normal RV function, mild TR PA pressure 40 and a small to moderate effusion. Impression Congestive heart failure. She has a large left effusion which can be tapped and I think this will help. New onset atrial flutter. Will begin IV amiodarone and plan on BERNADETTE guided cardioversion Saturday if she does not convert chemically. Patient has history of GI bleeding and transfusion and is not a candidate for anticoagulation Long-standing hypertension Chronic anemia Chronic renal failure Frailty Echo showed ejection fraction 55% with aortic sclerosis, 2+ AI, normal RV function, mild TR PA pressure 40 and small to moderate effusion Plan IV amiodarone Thoracentesis BMP in a.m. Exam (Progress Note) - Constitutional Vitals: Period Temp Pulse Resp BP Sys/Wilde Pulse Ox Last 24 Hr 98.0 F-99.5 F 55-78 16-20 122-178/55-87 90-95 Result/EKG - Labs CBC & BMP: 03/27/17 04:15 03/27/17 04:15 Labs: Laboratory Results - last 24 hr 03/27/17 03/27/17 03/27/17 04:15 04:15 07:27 WBC 5.5 RBC 3.02 L Hgb 9.3 L Hct 28.4 L MCV 94.0 MCH 31 MCHC 32.7 RDW 14.8 Plt Count 261 MPV 10.5 Neut % (Auto) 58.9 Lymph % (Auto) 24.6 Burt % (Auto) 12.3 Eos % (Auto) 3.3 Baso % (Auto) 0.5 Neut # (Auto) 3.3 Lymph # (Auto) 1.4 Burt # (Auto) 0.7 Eos # (Auto) 0.2 Baso # (Auto) 0.0 Immature Gran % 0.4 Nucleated RBC % 0.0 Immature Gran # 0.02 Nucleated RBCs # 0.00 Immature Plt Fraction 0.0 Sodium 142 Potassium 3.9 Chloride 106 Carbon Dioxide 28 Anion Gap 11.9 BUN 21 H Creatinine 2.30 H GFR Calculation 17 BUN/Creatinine Ratio 9.00 Glucose 93 POC Glucose 101 Calculated Osmolality 285.1 Calcium 8.4 L
[2017-03-27] MEDS ORDERED: AMIODARONE INJ 450 MG in DEXTROSE 5% 241 ML IV SCH (10:30)
--- NOTE | 2017-03-27 10:56 | Pulmonology Consult Note ---
History of Present Illness Chief complaint: CHF. Pleural effusion. Atrial flutter. History of present illness: Ms. Cash is a 82 year old white female whom I been asked to see concerning the possibility of thoracentesis. This patient is in with congestive heart failure. She has atrial flutter. Plan is to cardioverter and it is felt that it would be safer more effective if she has less pleural effusion. She has been diuresed as much as it is safe to diurese her. In July 2015 this patient had pericardial fluid drawn off. This was thought to be a viral pericarditis so does not seem to be related to her bilateral pleural effusions at present which are most likely secondary to congestive heart failure. She however does have a history of rheumatoid arthritis. The patient complains of lower extremity edema. She says this is uncomfortable. She has some tendency towards orthopnea and PND. She denies cardiac angina. There is no cough or sputum production and is no hemoptysis. The remainder of the review of systems is negative. Allergies. Zocor. "Arthritis medicine" Past history. Congestive heart failure. Viral pericarditis and required pericardiocentesis in July 2015. New-onset atrial flutter. High blood pressure. +2 aortic regurgitation. Rheumatoid arthritis. Chronic renal failure. History of gastric polyp followed by Dr. Maikel Vickers. Mabel-Madison tear with Coumadin in August 2015. Anemia. Cardiac cath July 2015 showed mild disease in the LAD and circumflex. There was a calcified 50-60% ostial right coronary artery lesion. Previous thyroid surgery. Hysterectomy. TNA. Social history. Patient denies tobacco and alcohol Family history. Positive for high blood pressure heart disease. Chest x-ray. 03/27/2017. My interpretation. Mild cardiomegaly. Bilateral pleural effusions greater on the left as compared to the right. Pleural effusion on the left was even larger few days ago. The lung king appear to be clear. I see no hilar adenopathy. Pulmonary arteries are probably normal. There is calcification aortic knob. Mediastinum is normal. Echocardiogram. 03/26/2017. Left ventricular ejection fraction of 55%. +2 aortic regurgitation. Trivial mitral regurgitation. Pulmonary artery pressures estimated to be 40 mmHg. Moderately dilated left atrium. Moderately enlarged right atrium. Normal right ventricular cavity. Small to moderate pericardial effusion Microbiology. No positive studies. Lab. White count is 5559 625 lymphs and 12 monos. H&H is 9.3/28.4 with normal indices. Weight is 261,000. Electrolytes are normal. Creatinine is 2.3 with a BUN of 21. Thyroid function tests are normal. A recent BNP was 1306 Physical exam. General. No apparent distress Psychiatric. Oriented 3. Talkative. Face. Symmetrical. No edema of the lips or tongue. Neck. Symmetrical. Slightly kyphotic. No masses. Lymphatics. No submandibular cervical supraclavicular or epitrochlear adenopathy. Chest. Clear with decreased inspiratory excursion. Heart. Grade 1.5 over 6 systolic ejection murmur at the left Breasts. Deferred. Abdomen. Nontender. Positive bowel sounds. and rectal. Deferred Extremities. +1/4 bilateral pedal and pretibial edema extends about 50% of distance between the ankles and the tibial plateaus bilaterally. Neurologic. Cranial nerves are intact. Long track motor functions intact. Sensory exam was not done. Gait was not tested. The remainder the physical exam is negative Impression. 1. Acute atrial flutter which needs cardioversion. 2. Congestive heart failure partially refractory to treatment 3. Bilateral pleural effusions probably secondary to #2. Consider the outside possibility could be related to rheumatoid arthritis. 4. +2 aortic valve regurgitation 5. Chronic renal failure 6. See past history Plan. 1. Dr. Membreno and I have reviewed the case and coordinating care. 2. Diagnostic and therapeutic thoracentesis on the left. I have requested multiple studies including cytology, H&H, white blood cell count with differential, glucose, LDH, SGOT, Gram stain, bacterial cultures. 3. Sed rate and rheumatoid arthritis factor 4. She will Home Medications Medication Instructions Recorded Confirmed Type Aspirin EC Tab 81 mg PO DAILY 01/12/16 03/25/17 History Metoprolol Tartrate Tab [Lopressor 25 mg PO BID 09/18/16 03/25/17 History Tab] Allergies Allergy/AdvReac Type Severity Reaction Status Date / Time simvastatin [From Zocor] AdvReac Gastrointestinal Verified 09/18/16 22:15 Upset arthritis med Allergy Intermediate RASH Uncoded 09/18/16 22:15 Exam (Pulmonay) H&P - Constitutional Vitals: Period Temp Pulse Resp BP Sys/Wilde Pulse Ox Last 24 Hr 98.0 F-99.5 F 55-78 16-20 122-178/55-87 90-95 Medical,Surgical,& Family Hx - Medical History Cardio: History of: Cardiac Dysrhythmia (atrial fib), Hypertension Psychological: No history of: Anxiety Disorders, ADHD, Behavior Problems, Bipolar Disorder, Depression, Previous Suicide Attempt, Psychiatric/Substance Abuse Tx, Schizophrenia, Violent Behavior, Psychiatric Problems Neurology: No history of: Seizures HEENT: History of: Eye Problem (retinal bleed) Endocrine: No history of: Diabetes Mellitus (NIDDM) Rheumatology: History of;: Gout, Rheumatoid Arthritis Renal: History of: Renal Failure (chronic class III previous had acute the recovered) Musculoskeletal: History of: Musculoskeletal Problems (the patient has arthritic changes. She states that she has RA) No history of: Amputation Hematology: History of: Blood Transfusion Reaction (1978) Other: History of: Miscellaneous Medical Problems (large pericardial effusion status post pericardiocentesis) - Surgical History Cardiac Surgeries: Patient Denies: Cardiac Catheterization Thoracic Surgeries: Patient denies;: Organ Transplant, Lobectomy Neurologic Surgeries: Patient denies: Neurologic Surgery HEENT Surgeries: Surgical HX of: Eye Surgery Patient denies: Thyroid Surgery, Tonsilectomy & Adenoidectomy Reproductive Surgeries: Surgical HX of;: Hysterectomy Patient denies;: Genitourinary Surgery, Gynecologic Surgery - Family History Family History: Reports;: Family Heart Disease, Family Hypertension - Social History Smoking Status: Never smoker Frequency of Alcohol Use: None Type of Drug Use: None Results - Labs CBC & BMP: 03/27/17 04:15 03/27/17 04:15
--- NOTE | 2017-03-27 15:17 | Post Interventional Procedure ---
Pre-op diagnosis: SOB bilateral peural effusions Post-op diagnosis: same Procedure: left thoracentesis Contrast: none Flouroscopy: none Radiologist: Konstantin Jo Anesthesia: local Specimens: none sent Estimated blood loss: none Complications: none Condition: stable Description/Findings: 550 mL serous fluid removed from the left pleural cavity patient tolerated well Assessment and Plan - Time spent with patient Time spent with patient: Less than 30 minutes
--- NOTE | 2017-03-27 15:20 | XRay Report ---
Exam: XR chest post procedure Indication: Status post left thoracentesis Comparison study: Prior radiograph 03/27/2017 at 7:17 AM Findings: Since the prior study, there is improved aeration within the left lung base, consistent with interval thoracentesis. There is no evidence of pneumothorax. Minimal residual left basilar opacities may represent atelectasis or trace pleural fluid. Critics silhouette remains enlarged. Right basilar opacities likely representing atelectasis and pleural fluid are essentially unchanged. Chronic degenerative changes of the shoulders are similar to prior. Impression: No acute abnormality following left thoracentesis. Improved aeration within the left lung base. Residual moderate right pleural effusion noted. PROCEDURE INTERPRETED AT [facility] DEPARTMENT OF RADIOLOGY Final Report Signed by: Konstantin Jo
--- NOTE | 2017-03-27 15:21 | Ultrasound Report ---
Exam: ULTRASOUND-GUIDED THORACENTESIS Clinical history: History of bilateral pleural effusions and shortness of breath. Physician: Dr. Jo. Procedure: Informed consent was obtained prior to the procedure. A formal timeout was performed. Maximum sterile barrier technique was used. A partially loculated left-sided pleural effusion was identified with ultrasound. The left posterior chest was prepped and draped in sterile fashion. 1% lidocaine was used to anesthetize the skin and subcutaneous tissues. Under sonographic guidance, a 6 [place]an safety centesis needle and catheter were advanced into the effusion using trocar technique. A captured sonographic image demonstrates positioning of the needle within the targeted pleural fluid. The needle was removed. Through the catheter, we obtained a total of 550 cc of serous pleural fluid. The catheter was removed. A bandage was placed at the puncture site. The patient tolerated the procedure well. Chest radiograph is pending. Impression: 1. Technically successful ultrasound guided left thoracentesis as detailed above. 2. Post procedure chest radiograph is pending. PROCEDURE INTERPRETED AT [facility] DEPARTMENT OF RADIOLOGY Final Report Signed by: Konstantin Jo
[2017-03-27] MEDS: TRIAMCINOLONE 0.1% CREAM 15 GM TUBE TOP SCH ×2 (15:28→21:18)
[2017-03-27] MEDS: FUROSEMIDE 20 MG TABLET PO SCH (15:53)
[2017-03-27 17:07] LABS: Lymphocytes,Pleural Fluid 85 %; Monocytes,Pleural Fluid 7 %; Neutrophils,Pleural Fluid 8 %
[2017-03-27 17:11] LABS: RBC,Pleural Fluid 511 T/CUMM
[2017-03-27] MEDS: ENOXAPARIN 30 MG/0.3 ML SYRINGE SUBCUT SCH (17:57)
[2017-03-27] MEDS: ZALEPLON 5 MG CAPSULE PO PRN (21:19)
[2017-03-27] MEDS: AMIODARONE INJ 450 MG in DEXTROSE 5% 241 ML IV SCH ×2 (21:27→22:49)
[2017-03-27] MEDS: ONDANSETRON 4 MG/2 ML VIAL IV PRN (23:07)
[2017-03-28] MEDS: METOPROLOL TARTRATE 50 MG TABLET PO SCH ×3 (07:45→20:49)
[2017-03-28] MEDS: DOCUSATE SODIUM 100 MG CAPSULE PO SCH ×3 (07:45→21:18)
[2017-03-28] MEDS: ASPIRIN EC 81 MG TABLET PO SCH ×2 (07:45→10:22)
[2017-03-28] MEDS: FUROSEMIDE 20 MG TABLET PO SCH ×2 (07:45→15:21)
--- NOTE | 2017-03-28 08:28 | XRay Report ---
History is follow-up thoracentesis Comparison 03/27/2017 The cardiac silhouette is enlarged. There is mildly increasing interstitial edema. The moderate right and small left pleural effusion remain possibly some reaccumulation of pleural fluid in the left base with obscuration the left diaphragm. Overlying shadows in the left apex without definite pneumothorax seen. Impression: 1. Mild reaccumulation of pleural fluid in the left base with slight increase in pulmonary edema PROCEDURE INTERPRETED AT [facility] DEPARTMENT OF RADIOLOGY Final Report Signed by: Dr. Amie Bustillo
[2017-03-28] MEDS: ONDANSETRON 4 MG/2 ML VIAL IV PRN (09:51)
--- NOTE | 2017-03-28 10:00 | Cardiology Progress Note ---
Cardiology - PN: Subj Interval history: Cardiology note 82-year-old woman Admitted with atrial flutter and congestive heart failure. Status post 550 cc left lung thoracentesis yesterday. Fluid was transudate. Telemetry shows atrial flutter with controlled rate on IV amiodarone. She feels a little better today. O2 sat is 96% on 2 L. Blood pressure 160/80. Irregular rhythm with systolic murmur as before. Decreased breath sounds with basilar crackles Benign abdomen No leg edema Lab data today white count 5.5 Hemoglobin 9.3 hematocrit 28.4 Sodium 142 potassium 3.9 chloride 106 CO2 28 BUN 21 creatinine 2.30 Impression Congestive heart failure Status post left lung thoracentesis New onset atrial flutter with controlled rate on IV amiodarone Long-standing hypertension History of GI bleed with transfusion. Patient is not a candidate for anticoagulation Chronic anemia Chronic renal failure Echo showed ejection fraction 55% with aortic sclerosis, 2+ AI, normal RV function, mild TR PA pressure 40 and [id number] effusion. Frailty Plan BERNADETTE guided cardioversion tomorrow 9 AM. Procedure discussed with patient and with her daughter Jonna. All questions answered. She agrees to proceed as outlined. Exam (Progress Note) - Constitutional Vitals: Period Temp Pulse Resp BP Sys/Wilde Pulse Ox Last 24 Hr 97.4 F-99.0 F 59-77 16-18 159-198/77-91 91-99 Result/EKG - Labs CBC & BMP: 03/27/17 04:15 03/27/17 04:15 Labs: Laboratory Results - last 24 hr 03/27/17 03/27/17 03/27/17 04:12 10:44 10:44 ESR [place]gren POC Glucose B-Natriuretic Peptide 884 H Fluid Total Protein Fluid LDH Fluid Amylase 12 Fluid Lipase Pleural WBC Pleural RBC Pleural Tot Cell Ct Pleural Neutrophils Pleural Lymphocytes Pleural Monocytes Pleural Glucose 106 Rheumatoid Factor 03/27/17 03/27/17 03/27/17 10:44 10:44 10:44 ESR [place] POC Glucose B-Natriuretic Peptide Fluid Total Protein < 2.0 Fluid LDH 95 Fluid Amylase Fluid Lipase 18 Pleural WBC Pleural RBC Pleural Tot Cell Ct Pleural Neutrophils Pleural Lymphocytes Pleural Monocytes Pleural Glucose Rheumatoid Factor 03/27/17 03/27/17 03/27/17 10:44 10:59 10:59 ESR [place] 50 H POC Glucose B-Natriuretic Peptide Fluid Total Protein Fluid LDH Fluid Amylase Fluid Lipase Pleural WBC 1101 Pleural RBC [address] 100 Pleural Neutrophils 8 Pleural Lymphocytes 85 Pleural Monocytes 7 Pleural Glucose Rheumatoid Factor < 15 03/27/17 11:21 ESR [place] POC Glucose 116 H B-Natriuretic Peptide Fluid Total Protein Fluid LDH Fluid Amylase Fluid Lipase Pleural WBC Pleural RBC Pleural Tot Cell Ct Pleural Neutrophils Pleural Lymphocytes Pleural Monocytes Pleural Glucose Rheumatoid Factor
--- NOTE | 2017-03-28 10:01 | History and Physical Update ---
Sedation H&P Update - History and Physical H&P was reviewed, the patient examined and there: are no changes in the patients condition since last H&P was completed. - Dictation Physical: refer to H&P completed by admitting physician - Physical Exam Mental Status: alert and oriented Heart: regular rate and rhythm Lung: clear to auscultation Abdomen: within normal limits Vitals: within normal limits - Sedation Plan for Sedation: moderate Patient Consent: Procedure disscussed with patient and patinet has consented., Risks and benefits were discussed with patient,including infection,, bleeding, injury to surrounding structures, seizure, temporary nerve, Patient understands and accepts potential risks/benefits and agrees to, proceed. ASA Class: II Airway Assessment: Class II: Soft palate, uvula, fauces visible
[2017-03-28] MEDS: TRIAMCINOLONE 0.1% CREAM 15 GM TUBE TOP SCH ×2 (10:22→21:18)
--- NOTE | 2017-03-28 10:34 | Pulmonology Progress Note ---
Pulmonary - PN: Subj Interval history: This is an 82-year-old white female whom I saw in pulmonary consultation on 04/2017. My impressions were. 1. Acute atrial flutter which needs cardioversion. 2. Congestive heart failure partially refractory to treatment 3. Bilateral pleural effusions probably secondary to #2. Consider the outside possibility could be related to rheumatoid arthritis. 4. +2 aortic valve regurgitation 5. Chronic renal failure 6. See past history 03/28/2017. On 03/27/2012 the patient had a left therapeutic and diagnostic thoracentesis. Approximately 500 cc of clear straw-colored fluid was removed. Chemistry showed that this is a transudate. This is consistent with the patient 's diagnosis of congestive heart failure. Patient says she can breathe better. Today's chest x-ray shows bilateral pleural effusions and cardiomegaly. There is a mild increase in interstitial edema in the perihilar areas. All of this is consistent with congestive heart failure. Her RA factor is negative. Creatinine is increased from 1.8-2.3. BUN is 21. Electrolytes are normal. H& H is 9.3/28.4. White count is 5559 segs 25 nebs 12 monos. Platelets are 261, 000. Thyroid function test are normal. Natruretic peptide is dropped from 1306 to a value of 884 Physical exam. Vital signs. See below. Afebrile Psychiatric. Oriented 3 Face. Symmetrical. No edema of the lips or tongue Neck. No meningismus Lymphatics. No submandibular cervical supraclavicular adenopathy. Chest is clear with decreased breath sounds at both bases Heart. Lateral PMI Abdomen. Nontender positive bowel sounds Lower extremities. Nothing to suggest deep venous thrombophlebitis Neurologic. Cranial nerves are intact with mild decreased hearing acuity bilaterally long track motor functions intact. Sensory exam was not done. I did not test the patient's gait. The remainder the physical exam is negative Plan. 03/27/[address] Membreno and I have reviewed the case and coordinating care. 2. Diagnostic and therapeutic thoracentesis on the left. I have requested multiple studies including cytology, H&H, white blood cell count with differential, glucose, LDH, SGOT, Gram stain, bacterial cultures. 3. Sed rate and rheumatoid arthritis factor 4. She will 03/28/2017. 1. See my note above 2. Left pleural fluid is a transudate compatible with congestive heart failure 3. Creatinine is increased from 1.8-2.3. Watch. 4. BNP is 884. 5. Chest x-ray, BMP and BNP have been ordered for tomorrow. Exam (Progress Note) - Constitutional Vitals: Period Temp Pulse Resp BP Sys/Wilde Pulse Ox Last 24 Hr 97.4 F-99.0 F 59-77 16-18 159-198/77-91 91-99 Results - Labs CBC & BMP: 03/27/17 04:15 03/27/17 04:15
[2017-03-28] MEDS: AMIODARONE INJ 450 MG in DEXTROSE 5% 241 ML IV SCH ×2 (14:00→22:30)
[2017-03-28] MEDS: ENOXAPARIN 30 MG/0.3 ML SYRINGE SUBCUT SCH (17:51)
--- NOTE | 2017-03-28 20:27 | Nephrology Progress Note ---
Nephrology - PN: Subj Interval history: Patient is resting comfortably no acute changes. Breathing is improved. Still remains on Cardizem infusion medicines are being adjusted. 03/27/2017. The patient is resting comfortably no acute changes. No shortness of breath. Serum creatinine is 2.3 which is patient's baseline. At this time switch to p.o. Lasix 60 mg twice daily. 03/28/2017. Patient is resting comfortably. Still remains in atrial flutter. Hemodynamics have been stable. Exam (PN)-Nephrology - Vital Signs Vital signs: Period Temp Pulse Resp BP Sys/Wilde Pulse Ox Last 24 Hr 97.4 F-99.3 F 62-77 16-18 155-198/77-89 91-98 - General Appearance General appearance: well-developed, well-nourished EENT: ATNC Neck: supple Respiratory: clear Cardiology: no edema, regular rate, regular rhythm Gastrointestinal: normoactive bowel sounds, no tenderness Neurologic: alert and oriented x3, CN 3-12 intact Musculoskeletal: no clubbing Psychiatric: mood/affect appropriate, cooperative - Lab 03/27/17 04:15 03/27/17 04:15 Most recent lab results Calcium 8.4 MG/DL (8.5-10.1) L 03/27/17 04:15 Phosphorus 3.9 MG/DL (2.5-4.9) 03/26/17 01:00 Magnesium 1.9 MG/DL (1.8-2.4) 03/26/17 01:00 Assessment and Plan (1) Atrial fibrillation Status: Chronic Assessment and plan: Appreciate input from cardiology. Current Visit: No Qualifiers: Atrial fibrillation type: paroxysmal Qualified Code(s): I48.0 - Paroxysmal atrial fibrillation (2) Chronic kidney disease Status: Chronic Current Visit: No Qualifiers: Chronic kidney disease stage: stage 3 (moderate) Qualified Code(s): N18.3 - Chronic kidney disease, stage 3 (moderate) (3) Pleural effusion Status: Resolved Assessment and plan: Lasix 60 mg p.o. twice daily. Current Visit: No (4) CKD (chronic kidney disease) stage 3, GFR 30-59 ml/min Status: Chronic Current Visit: No
[2017-03-28] MEDS: ZALEPLON 5 MG CAPSULE PO PRN (20:49)
[2017-03-29] MEDS: AMIODARONE INJ 450 MG in DEXTROSE 5% 241 ML IV SCH ×3 (05:24→22:24)
[2017-03-29 06:12] LABS: Calcium 7.9 MG/DL (8.5-10.1); Magnesium 1.5 MG/DL (1.8-2.4); Osmolality,Calculated 276.7 MOS/KG (273-304); Potassium 3.3 MMOL/L (3.5-5.1)
--- NOTE | 2017-03-29 08:38 | XRay Report ---
XR chest 2V Date: 03/29/2017 4:00 AM History: CHF Comparison: 03/28/2017 Technique: PA and lateral chest Findings: Persistent cardiomegaly with arterial calcifications. Decreased pleural-parenchymal findings at the lung bases. Stable mediastinum and osseous structures. Osteopenia. Impression: Improved CHF with smaller small to moderate pleural effusions. Osteopenia. PROCEDURE INTERPRETED AT [facility] DEPARTMENT OF RADIOLOGY Final Report Signed by: Dr. Keyanna Machado
[2017-03-29] MEDS ORDERED: MEPERIDINE 25 MG/1 ML VIAL ONE ×2 (10:38→10:57)
[2017-03-29] MEDS ORDERED: MIDAZOLAM 10 MG/2 ML VIAL ONE (10:39)
--- NOTE | 2017-03-29 10:59 | Nephrology Progress Note ---
Nephrology - PN: Subj Interval history: Patient is resting comfortably no acute changes. Breathing is improved. Still remains on Cardizem infusion medicines are being adjusted. 03/27/2017. The patient is resting comfortably no acute changes. No shortness of breath. Serum creatinine is 2.3 which is patient's baseline. At this time switch to p.o. Lasix 60 mg twice daily. 03/28/2017. Patient is resting comfortably. Still remains in atrial flutter. Hemodynamics have been stable. 03/29/2017. Patient is resting comfortably no acute changes. He remains in atrial flutter. She remains on amiodarone infusion. Hemodynamics have been stable. She mentions that her urine smells strong. No fevers or chills. Will get a urinalysis and urine culture. Exam (PN)-Nephrology - Vital Signs Vital signs: Period Temp Pulse Resp BP Sys/Wilde Pulse Ox Last 24 Hr 96.8 F-99.4 F 64-84 16-20 145-168/75-85 94-98 - General Appearance General appearance: fatigue, frail EENT: ATNC Neck: supple Cardiology: no edema, regular rate, irregular rhythm Gastrointestinal: normoactive bowel sounds, no guarding Neurologic: alert and oriented x3 Musculoskeletal: no clubbing Psychiatric: mood/affect appropriate - Lab 03/27/17 04:15 03/29/17 05:20 Most recent lab results Calcium 7.9 MG/DL (8.5-10.1) L 03/29/17 05:20 Phosphorus 3.9 MG/DL (2.5-4.9) 03/26/17 01:00 Magnesium 1.5 MG/DL (1.8-2.4) L 03/29/17 05:20 Assessment and Plan (1) Atrial fibrillation Status: Chronic Assessment and plan: Appreciate input from cardiology. Current Visit: No Qualifiers: Atrial fibrillation type: paroxysmal Qualified Code(s): I48.0 - Paroxysmal atrial fibrillation (2) Chronic kidney disease Status: Chronic Current Visit: No Qualifiers: Chronic kidney disease stage: stage 3 (moderate) Qualified Code(s): N18.3 - Chronic kidney disease, stage 3 (moderate) (3) CKD (chronic kidney disease) stage 3, GFR 30-59 ml/min Status: Chronic Current Visit: No
--- NOTE | 2017-03-29 11:04 | Pulmonology Progress Note ---
Pulmonary - PN: Subj Interval history: This is an 82-year-old white female whom I saw in pulmonary consultation on 04/2017. My impressions were. 1. Acute atrial flutter which needs cardioversion. 2. Congestive heart failure partially refractory to treatment 3. Bilateral pleural effusions probably secondary to #2. Consider the outside possibility could be related to rheumatoid arthritis. 4. +2 aortic valve regurgitation 5. Chronic renal failure 6. See past history 03/28/2017. On 03/27/2012 the patient had a left therapeutic and diagnostic thoracentesis. Approximately 500 cc of clear straw-colored fluid was removed. Chemistry showed that this is a transudate. This is consistent with the patient 's diagnosis of congestive heart failure. Patient says she can breathe better. Today's chest x-ray shows bilateral pleural effusions and cardiomegaly. There is a mild increase in interstitial edema in the perihilar areas. All of this is consistent with congestive heart failure. Her RA factor is negative. Creatinine is increased from 1.8-2.3. BUN is 21. Electrolytes are normal. H& H is 9.3/28.4. White count is 5559 segs 25 nebs 12 monos. Platelets are 261, 000. Thyroid function test are normal. Natruretic peptide is dropped from 1306 to a value of 884 03/29/2017. Patient was seen along with 2 family members today she is feeling fine and waiting for cardioversion. The left-sided pleural effusion appears to be smaller. There is still a mild to moderate right-sided pleural effusion. Lung king show no pulmonary edema. Natruretic peptide has fallen from 1306-376. His creatinine is increased from 1.80-2.80. BUN is 20. Potassium is low at 3.3. Rheumatoid arthritis factor is less than 15 Physical exam. Vital signs. See below. Afebrile Psychiatric. Oriented 3 Face. Symmetrical. No edema of the lips or tongue Neck. No meningismus Lymphatics. No submandibular cervical supraclavicular adenopathy. Chest is clear with decreased breath sounds at both bases Heart. Lateral PMI Abdomen. Nontender positive bowel sounds Lower extremities. Nothing to suggest deep venous thrombophlebitis Neurologic. Cranial nerves are intact with mild decreased hearing acuity bilaterally long track motor functions intact. Sensory exam was not done. I did not test the patient's gait. The remainder the physical exam is negative Plan. 03/27/[address] Membreno and I have reviewed the case and coordinating care. 2. Diagnostic and therapeutic thoracentesis on the left. I have requested multiple studies including cytology, H&H, white blood cell count with differential, glucose, LDH, SGOT, Gram stain, bacterial cultures. 3. Sed rate and rheumatoid arthritis factor 4. She will 03/28/2017. 1. See my note above 2. Left pleural fluid is a transudate compatible with congestive heart failure 3. Creatinine is increased from 1.8-2.3. Watch. 4. BNP is 884. 5. Chest x-ray, BMP and BNP have been ordered for tomorrow. 03/29/2017. 1. See my note above 2. Follow-up chest x-ray 3. Cardioversion today. Exam (Progress Note) - Constitutional Vitals: Period Temp Pulse Resp BP Sys/Wilde Pulse Ox Last 24 Hr 96.8 F-99.4 F 64-84 16-20 145-168/75-85 94-98 Results - Labs CBC & BMP: 03/27/17 04:15 03/29/17 05:20
--- NOTE | 2017-03-29 11:18 | History and Physical Update ---
Sedation H&P Update - History and Physical H&P was reviewed, the patient examined and there: are no changes in the patients condition since last H&P was completed. - Dictation Physical: refer to H&P completed by admitting physician - Sedation Plan for Sedation: moderate Patient Consent: Procedure disscussed with patient and patinet has consented., Risks and benefits were discussed with patient,including infection,, bleeding, injury to surrounding structures, seizure, temporary nerve, Patient understands and accepts potential risks/benefits and agrees to, proceed. ASA Class: II Airway Assessment: Class II: Soft palate, uvula, fauces visible
--- NOTE | 2017-03-29 11:55 | Order Completion Report ---
See report scanned to EMR
--- NOTE | 2017-03-29 11:56 | Event Note ---
Event note Synchronized cardioversion procedure note Preop diagnosis recurrent atrial flutter Postop diagnosis same The patient developed recurrent atrial flutter and failed to convert with IV amiodarone. He is not a candidate for anticoagulation due to history of GI bleeding and transfusion and unsteady gait. The procedure were discussed with the patient and with her daughter Jonna, all questions answered, consent form was signed. The patient received a total dose of 7 mg IV Versed to achieve and maintain adequate anesthesia throughout the procedure. BERNADETTE was done without difficulty. Ejection fraction 50% with mildly dilated left atrium, normal LA appendage with no clot, grade 2 calcified plaque in the descending thoracic aorta but no mobile debris. Apical and sternal patches were placed. Using the biphasic Zoll, successful synchronized cardioversion was achieved in the first attempt with 200 J. She promptly returned to steady sinus rhythm. No bagging was required. Presently the blood pressure is 170/70 the pulse is 64 and sinus and the O2 sat is 99% on 2 L. The patient is beginning to lighten. There were no obvious complications. Plan EKG now Switch to p.o. amiodarone Findings and plan discussed with patient's daughters Jonna and Berta
[2017-03-29] MEDS ORDERED: MIDAZOLAM 10 MG/2 ML VIAL IV ONE (12:15)
[2017-03-29] MEDS: FUROSEMIDE 20 MG TABLET PO SCH ×2 (12:49→17:03)
[2017-03-29] MEDS: ASPIRIN EC 81 MG TABLET PO SCH (12:50)
[2017-03-29] MEDS: METOPROLOL TARTRATE 50 MG TABLET PO SCH ×2 (12:50→21:27)
[2017-03-29] MEDS: TRIAMCINOLONE 0.1% CREAM 15 GM TUBE TOP SCH ×2 (12:50→21:27)
[2017-03-29] MEDS: DOCUSATE SODIUM 100 MG CAPSULE PO SCH ×2 (12:50→21:27)
--- NOTE | 2017-03-29 13:27 | Physician Query Form ---
CLICK EDIT DOCUMENT TO SELECT QUERY ANSWER --> OK --> SIGN Luly Paula RN [employer] W) [phone] (f) [phone] [email or web address]: Make your selection(s) from the choices in EACH section by typing an "x" and enter comments in the comment section. Please use your independent medical judgment in providing your response. This request does not imply that any particular answer is desired or expected. CLINICAL INDICATORS: (Providers should not edit this section) Based on documentation of "acute on chronic CHF", BNP= 1306, Echo showed EF of 55%. Pt. treated with IV Lasix. Please provide further specificity regarding CHF. TYPE: ( ) Systolic (HFrEF - heart failure with reduced systolic function/EF) ( x) Diastolic (HFpEF - heart failure with preserved systolic function/EF) ( ) Combined Systolic/Diastolic ( ) Other, please specify: ( ) Clinically unable to determine COMMENTS: PLEASE ALSO DOCUMENT RESPONSE IN PROGRESS NOTES AND/OR DISCHARGE SUMMARY Use of terms such as suspected, likely, or probable (associated with a specific diagnosis that is being evaluated, monitored, or treated as if it exists) are acceptable and can be restated in the discharge summary if not ruled out. MTDD
--- NOTE | 2017-03-29 14:16 | Pathology Report from [facility] ---
[facility] [place] # : [id number] PATIENT NAME : Veronika Cash ORDERING DR : Konstantin Jo MD CLINICAL HX: CHF, atrial fibrillation, chronic renal failure POST-OP DX: Same SPECIMEN INFO: Fluid- Pleural, left - 500 mls cloudy straw with fibrinous strands CLASS: II CLASS COMMENTS: Benign mesothelial cells with numerous small lymphocytes. Specimen sent for flow cytometry to rule out clonal process.CELL BLOCK: Same. CLASS LEGEND: CLASS 0 Material inadequate for diagnosis because of (see comment) CLASS I Absence of atypical or abnormal cells CLASS II Atypical Cytology but no evidence of malignancy CLASS III Cytology suggestive of but not conclusive for malignancy CLASS IV Cytology strongly suggestive of malignancy CLASS V Cytology conclusive for malignancy COLLECTED DATE: 03/28/2017 [facility] [place] DATE: 03/29/2017 ELECTRONICALLY SIGNED BY: Bryon Clay M.D. 03/29/2017 - 8:55:08 MTDD
--- NOTE | 2017-03-29 15:21 | Order Completion Report ---
See report scanned to EMR
[2017-03-29] MEDS: ENOXAPARIN 30 MG/0.3 ML SYRINGE SUBCUT SCH (17:20)
[2017-03-29] MEDS ORDERED: MAGNESIUM SULF RIDER 4 GM in PREMIX 1 EACH IV PRN (18:49)
[2017-03-29] MEDS ORDERED: MAGNESIUM SULF RIDER 2 GM in PREMIX 1 EACH IV PRN (18:49)
[2017-03-29] MEDS: ZALEPLON 5 MG CAPSULE PO PRN (22:36)
[2017-03-30] MEDS: POTASSIUM CHLORIDE 20 MEQ TABLET PO PRN ×4 (00:20→12:04)
[2017-03-30 01:58] LABS: Apearance,Urine CLEAR (Clear); Bilirubin,Urine Negative (Negative); Blood, Urine Negative (Negative); Glucose,Urine (UA) Negative (Negative); Ketones,Urine Negative (Negative); Mucus,Urine Occasional /LPF (Occasional); Nitrite,Urine Negative (Negative); Protein,Urine 100 MG/DL; RBC,Urine <1 /HPF (0-4); Squamous Epithelial Cell,Urine Occasional /HPF (0-10); Urine Color Straw (Yellow); Urine Specific Gravity 1.003 (1.001-1.035); Urine Urobilinogen < 2.0 EU/DL (0.2-1.0); WBC,Urine 1 /HPF (0-6)
[2017-03-30] MEDS: AMIODARONE INJ 450 MG in DEXTROSE 5% 241 ML IV SCH (04:34)
[2017-03-30 04:52] LABS: Basophils % 0.5 % (0.0-0.8); Eosinophils # 0.4 10*3/uL (0.0-0.87); Eosinophils % 5.9 % (0.00-10.9); Hematocrit 24.8 VOL% (35.7-47.0); Hemoglobin 8.4 GM/DL (12.0-16.0); Immature Granulocytes % 0.5 %; Immature Granulocytes Absolute 0.03 #; Lymphocytes # 1.7 10*3/uL (1.4-4.0); Lymphocytes % 27.2 % (21.3-54.2); Mean Corpuscular HGB Conc 33.9 GM/DL (32-36); Mean Corpuscular Hemoglobin 31 PG (27-34); Mean Corpuscular Volume 91.2 FL (87-102); Mean Platelet Volume 10.5 FL (9.6-12.0); Monocytes # 0.8 10*3/uL (0.11-0.8); Monocytes % 13.6 % (1.7-12.7); Neutrophils # 3.2 10*3/uL (1.4-7.4); Neutrophils % 52.3 % (38.7-73.9); Platelet Count 273 T/CUMM (130-400); Red Blood Count 2.72 MC/CUMM (3.8-5.5); White Blood Count 6.1 T/CUMM (4-12)
[2017-03-30 05:22] LABS: Calcium 7.6 MG/DL (8.5-10.1); Magnesium 1.5 MG/DL (1.8-2.4); Osmolality,Calculated 281.4 MOS/KG (273-304); Potassium 3.4 MMOL/L (3.5-5.1)
[2017-03-30] MEDS: FUROSEMIDE 20 MG TABLET PO SCH ×2 (09:58→17:05)
[2017-03-30] MEDS: NITROFURANTOIN MACROCRYSTALS 100 MG CAPSULE PO SCH ×4 (09:58→20:50)
[2017-03-30] MEDS: ASPIRIN EC 81 MG TABLET PO SCH (09:59)
[2017-03-30] MEDS: METOPROLOL TARTRATE 50 MG TABLET PO SCH ×3 (10:00→22:44)
[2017-03-30] MEDS: DOCUSATE SODIUM 100 MG CAPSULE PO SCH ×2 (10:00→20:52)
[2017-03-30] MEDS: TRIAMCINOLONE 0.1% CREAM 15 GM TUBE TOP SCH ×2 (10:01→20:52)
[2017-03-30] MEDS ORDERED: EPOETIN ALFA 10,000 UNIT/1 ML VIAL SUBCUT ONE (10:29)
--- NOTE | 2017-03-30 10:32 | Nephrology Progress Note ---
Nephrology - PN: Subj Interval history: Patient is resting comfortably no acute changes. Breathing is improved. Still remains on Cardizem infusion medicines are being adjusted. 03/27/2017. The patient is resting comfortably no acute changes. No shortness of breath. Serum creatinine is 2.3 which is patient's baseline. At this time switch to p.o. Lasix 60 mg twice daily. 03/28/2017. Patient is resting comfortably. Still remains in atrial flutter. Hemodynamics have been stable. 03/29/2017. Patient is resting comfortably no acute changes. He remains in atrial flutter. She remains on amiodarone infusion. Hemodynamics have been stable. She mentions that her urine smells strong. No fevers or chills. Will get a urinalysis and urine culture. 03/30/2017. The patient is resting comfortably no acute changes. No fevers or chills. She remains in atrial flutter. Switch to amiodarone by mouth today. Magnesium is being supplemented. Serum creatinine is 2.9 which appears to be stable. We will also add Epogen 10,000 units subcu today. CBC BMP in a.m. Exam (PN)-Nephrology - Vital Signs Vital signs: Period Temp Pulse Resp BP Sys/Wilde Pulse Ox Last 24 Hr 97.2 F-98.9 F 52-62 16-22 141-158/52-73 95-99 - General Appearance General appearance: well-developed EENT: ATNC Neck: supple Respiratory: clear Cardiology: no edema, regular rate, irregular rhythm Gastrointestinal: normoactive bowel sounds, no tenderness, no guarding Neurologic: alert and oriented x3 Musculoskeletal: no clubbing Psychiatric: mood/affect appropriate, cooperative - Lab 03/30/17 04:30 03/30/17 04:30 Most recent lab results Calcium 7.6 MG/DL (8.5-10.1) L 03/30/17 04:30 Phosphorus 3.9 MG/DL (2.5-4.9) 03/26/17 01:00 Magnesium 1.5 MG/DL (1.8-2.4) L 03/30/17 04:30 Assessment and Plan (1) Atrial fibrillation Status: Chronic Assessment and plan: Appreciate input from cardiology. Current Visit: No Qualifiers: Atrial fibrillation type: paroxysmal Qualified Code(s): I48.0 - Paroxysmal atrial fibrillation (2) Chronic kidney disease Status: Chronic Current Visit: No Qualifiers: Chronic kidney disease stage: stage 3 (moderate) Qualified Code(s): N18.3 - Chronic kidney disease, stage 3 (moderate) (3) CKD (chronic kidney disease) stage 3, GFR 30-59 ml/min Status: Chronic Current Visit: No
[2017-03-30] MEDS: MAGNESIUM OXIDE 400 MG TABLET PO SCH ×2 (12:03→20:51)
--- NOTE | 2017-03-30 12:19 | Pulmonology Progress Note ---
Pulmonary - PN: Subj Interval history: This is an 82-year-old white female whom I saw in pulmonary consultation on 04/2017. My impressions were. 1. Acute atrial flutter which needs cardioversion. 2. Congestive heart failure partially refractory to treatment 3. Bilateral pleural effusions probably secondary to #2. Consider the outside possibility could be related to rheumatoid arthritis. 4. +2 aortic valve regurgitation 5. Chronic renal failure 6. See past history 03/28/2017. On 03/27/2012 the patient had a left therapeutic and diagnostic thoracentesis. Approximately 500 cc of clear straw-colored fluid was removed. Chemistry showed that this is a transudate. This is consistent with the patient 's diagnosis of congestive heart failure. Patient says she can breathe better. Today's chest x-ray shows bilateral pleural effusions and cardiomegaly. There is a mild increase in interstitial edema in the perihilar areas. All of this is consistent with congestive heart failure. Her RA factor is negative. Creatinine is increased from 1.8-2.3. BUN is 21. Electrolytes are normal. H& H is 9.3/28.4. White count is 5559 segs 25 nebs 12 monos. Platelets are 261, 000. Thyroid function test are normal. Natruretic peptide is dropped from 1306 to a value of 884 03/29/2017. Patient was seen along with 2 family members today she is feeling fine and waiting for cardioversion. The left-sided pleural effusion appears to be smaller. There is still a mild to moderate right-sided pleural effusion. Lung king show no pulmonary edema. Natruretic peptide has fallen from 1306-376. His creatinine is increased from 1.80-2.80. BUN is 20. Potassium is low at 3.3. Rheumatoid arthritis factor is less than 15 03/30/2017. Patient was cardioverted yesterday. H&H is 8.4 24.8. White count 6100. Potassium is 3.4. Creatinine is 2.90 with a BUN of 23. Patient says she feels fine. She has been in heart failure with bilateral pleural effusions. Natruretic peptide is gradually fallen to 376. I will repeat a chest x-ray tomorrow morning. Physical exam. Vital signs. See below. Afebrile Psychiatric. Oriented 3 Face. Symmetrical. No edema of the lips or tongue Neck. No meningismus Lymphatics. No submandibular cervical supraclavicular adenopathy. Chest is clear with decreased breath sounds at both bases Heart. Lateral PMI Abdomen. Nontender positive bowel sounds Lower extremities. Nothing to suggest deep venous thrombophlebitis Neurologic. Cranial nerves are intact with mild decreased hearing acuity bilaterally long track motor functions intact. Sensory exam was not done. I did not test the patient's gait. The remainder the physical exam is negative Plan. 03/27/[address] Membreno and I have reviewed the case and coordinating care. 2. Diagnostic and therapeutic thoracentesis on the left. I have requested multiple studies including cytology, H&H, white blood cell count with differential, glucose, LDH, SGOT, Gram stain, bacterial cultures. 3. Sed rate and rheumatoid arthritis factor 4. She will 03/28/2017. 1. See my note above 2. Left pleural fluid is a transudate compatible with congestive heart failure 3. Creatinine is increased from 1.8-2.3. Watch. 4. BNP is 884. 5. Chest x-ray, BMP and BNP have been ordered for tomorrow. 03/29/2017. 1. See my note above 2. Follow-up chest x-ray 3. Cardioversion today. 03/29/2017. 1. See my note above 2. Chest x-ray normal Exam (Progress Note) - Constitutional Vitals: Period Temp Pulse Resp BP Sys/Wilde Pulse Ox Last 24 Hr 97.1 F-98.9 F 52-62 16-22 141-158/52-73 94-99 Results - Labs CBC & BMP: 03/30/17 04:30 03/30/17 04:30 Specialty Discharge - Follow Up or Referrals Follow up with: Deya Alcaraz DO [Physician] - 1 Week
--- NOTE | 2017-03-30 12:34 | Cardiology Progress Note ---
Cardiology - PN: Subj Interval history: Cardiology note Day 1 status post BERNADETTE guided cardioversion. Telemetry shows sinus rhythm with first-degree AV block. O2 sat 94% on 2 L. Blood pressure 146/70. Regular rhythm with systolic murmur as before. Decreased breath sounds with bibasilar crackles left greater than right Abdomen soft benign No leg edema Lab data today Hemoglobin 8.4 hematocrit 24.8 white count 6.1 Sodium 140 potassium 3.4 chloride 103 CO2 28 BUN 23 creatinine 2.90 Impression Congestive heart failure due to atrial flutter and hypertension Status post left lung thoracentesis New onset atrial flutter, status post cardioversion March 29, 2017 Long-standing hypertension History GI bleed with transfusion, patient is not a candidate for anticoagulation Chronic anemia. Hematocrit 24.8 today Chronic renal failure Echo showed ejection fraction 55% with aortic sclerosis, 2+ AI, normal RV function, mild TR PA pressure 40 and [id number]-[id number] effusion. Frailty Plan Amiodarone 200 mg twice daily Office visit with Dr. Paulino with EKG in [address] Escobar to consider transfusion Home per Dr. Escobar Exam (Progress Note) - Constitutional Vitals: Period Temp Pulse Resp BP Sys/Wilde Pulse Ox Last 24 Hr 97.1 F-98.9 F 52-62 16-22 141-158/52-73 94-99 Result/EKG - Labs CBC & BMP: 03/30/17 04:30 03/30/17 04:30 Labs: Laboratory Results - last 24 hr 03/30/17 03/30/17 03/30/17 01:51 04:30 04:30 WBC 6.1 RBC 2.72 L Hgb 8.4 L Hct 24.8 L MCV 91.2 MCH 31 MCHC 33.9 RDW 15.0 Plt Count 273 MPV 10.5 Neut % (Auto) 52.3 Lymph % (Auto) 27.2 [place] % (Auto) 13.6 H Eos % (Auto) 5.9 Baso % (Auto) 0.5 Neut # (Auto) 3.2 Lymph # (Auto) 1.7 [place] # (Auto) 0.8 Eos # (Auto) 0.4 Baso # (Auto) 0.0 Immature Gran % 0.5 Nucleated RBC % 0.0 Immature Gran # 0.03 Nucleated RBCs # 0.00 Immature Plt Fraction 0.0 Sodium 140 Potassium 3.4 L Chloride 103 Carbon Dioxide 28 Anion Gap 12.4 BUN 23 H Creatinine 2.90 H GFR Calculation 13 BUN/Creatinine Ratio 7.00 Glucose 89 Calculated Osmolality 281.4 Calcium 7.6 L Magnesium 1.5 L Urine Color Straw Urine Appearance Clear Urine pH 6.0 Ur Specific [place] 1.003 Urine Protein 100 Urine Glucose (UA) Negative Urine Ketones Negative Urine Blood Negative Urine Nitrate Negative Urine Bilirubin Negative Urine Urobilinogen < 2.0 H Urine Leukocytes Negative Urine RBC <1 Urine WBC 1 Ur Squamous Epith Cells Occasional Urine Mucus Occasional Ur Culture Indicated? Ordered separately Specialty Discharge - Follow Up or Referrals Follow up with: Deya Alcaraz DO [Physician] - 1 Week
[2017-03-30] MEDS: AMIODARONE 200 MG TABLET PO SCH ×2 (15:24→20:51)
[2017-03-30] MEDS: ENOXAPARIN 30 MG/0.3 ML SYRINGE SUBCUT SCH (17:08)
[2017-03-30] MEDS: ZALEPLON 5 MG CAPSULE PO PRN (20:50)
[2017-03-30] MEDS: ONDANSETRON 4 MG/2 ML VIAL IV PRN (23:06)
[2017-03-30] MEDS: cloNIDine 0.1 MG TABLET PO PRN (23:09)
[2017-03-31 04:50] LABS: Basophils % 0.6 % (0.0-0.8); Eosinophils # 0.1 10*3/uL (0.0-0.87); Eosinophils % 2.3 % (0.00-10.9); Hematocrit 29.1 VOL% (35.7-47.0); Hemoglobin 9.8 GM/DL (12.0-16.0); Immature Granulocytes % 0.3 %; Immature Granulocytes Absolute 0.02 #; Lymphocytes # 1.5 10*3/uL (1.4-4.0); Mean Corpuscular HGB Conc 33.7 GM/DL (32-36); Mean Corpuscular Hemoglobin 31 PG (27-34); Mean Corpuscular Volume 90.7 FL (87-102); Mean Platelet Volume 10.2 FL (9.6-12.0); Monocytes # 0.8 10*3/uL (0.11-0.8); Neutrophils # 3.7 10*3/uL (1.4-7.4); Neutrophils % 59.8 % (38.7-73.9); Platelet Count 281 T/CUMM (130-400); Red Blood Count 3.21 MC/CUMM (3.8-5.5); Red Cell Distribution Width 14.7 % (9.3-17.3); White Blood Count 6.2 T/CUMM (4-12)
[2017-03-31 05:18] LABS: Calcium 8.7 MG/DL (8.5-10.1); Magnesium 1.8 MG/DL (1.8-2.4); Osmolality,Calculated 280.5 MOS/KG (273-304); Potassium 4.3 MMOL/L (3.5-5.1)
[2017-03-31] MEDS: MAGNESIUM OXIDE 400 MG TABLET PO SCH (08:51)
[2017-03-31] MEDS: FUROSEMIDE 20 MG TABLET PO SCH (08:51)
[2017-03-31] MEDS: NITROFURANTOIN MACROCRYSTALS 100 MG CAPSULE PO SCH ×2 (08:52→12:26)
[2017-03-31] MEDS: ASPIRIN EC 81 MG TABLET PO SCH (08:52)
[2017-03-31] MEDS: AMIODARONE 200 MG TABLET PO SCH (08:52)
[2017-03-31] MEDS: METOPROLOL TARTRATE 50 MG TABLET PO SCH (08:52)
[2017-03-31] MEDS: DOCUSATE SODIUM 100 MG CAPSULE PO SCH (08:56)
[2017-03-31] MEDS: TRIAMCINOLONE 0.1% CREAM 15 GM TUBE TOP SCH (08:57)
--- NOTE | 2017-03-31 09:14 | Cardiology Progress Note ---
Cardiology - PN: Subj Interval history: Cardiology note Day 2 status post BERNADETTE guided cardioversion. Telemetry shows sinus rhythm with first-degree AV block Blood pressure 158/76 Always pleasant. No complaints. Regular rhythm with soft systolic murmur as before Decreased breath sounds with bibasilar crackles left greater than right Abdomen benign No leg edema Lab data today White count 6.2 hemoglobin 9.8 hematocrit 29.1 Sodium 139 potassium 4.3 chloride 102 CO2 28 BUN 25 creatinine down to 2.70 glucose 94 Impression Congestive heart failure due to atrial flutter and hypertension Status post left lung thoracentesis New onset atrial flutter, status post BERNADETTE cardioversion March 29, 2017 Long-standing hypertension History GI bleed with transfusion, patient is not a candidate for anticoagulation Chronic anemia, status post Epogen yesterday Chronic renal failure Echo Doppler showed ejection fraction 55% with aortic sclerosis, 2+ AI, normal RV function, mild TR PA pressure 40 and [id number]-lozwsuut effusion Frailty Plan Amiodarone 200 mg twice daily Office visit with Dr. Castro with EKG 1 week Increase hydralazine 100 mg 3 times daily Exam (Progress Note) - Constitutional Vitals: Period Temp Pulse Resp BP Sys/Wilde Pulse Ox Last 24 Hr 97.0 F-98.4 F 52-79 16-22 158-220/57-109 94-98 Result/EKG - Labs CBC & BMP: 03/31/17 04:32 03/31/17 04:32 Labs: Laboratory Results - last 24 hr 03/31/17 03/31/17 04:32 04:32 WBC 6.2 RBC 3.21 L Hgb 9.8 L Hct 29.1 L MCV 90.7 MCH 31 MCHC 33.7 RDW 14.7 Plt Count 281 MPV 10.2 Neut % (Auto) 59.8 Lymph % (Auto) 24.0 [place] % (Auto) 13.0 H Eos % (Auto) 2.3 Baso % (Auto) 0.6 Neut # (Auto) 3.7 Lymph # (Auto) 1.5 [place] # (Auto) 0.8 Eos # (Auto) 0.1 Baso # (Auto) 0.0 Immature Gran % 0.3 Nucleated RBC % 0.0 Immature Gran # 0.02 Nucleated RBCs # 0.00 Immature Plt Fraction 0.0 Sodium 139 Potassium 4.3 Chloride 102 Carbon Dioxide 28 Anion Gap 13.3 BUN 25 H Creatinine 2.70 H GFR Calculation 14 BUN/Creatinine Ratio 9.00 Glucose 94 Calculated Osmolality 280.5 Calcium 8.7 Magnesium 1.8 Specialty Discharge - Follow Up or Referrals Follow up with: Deya Alcaraz DO [Physician] - 1 Week
--- NOTE | 2017-03-31 11:33 | XRay Report ---
History: Right pleural effusion Date: 03/31/2017 Study: Chest x-ray PA and lateral Comparison exam: March 29, 2017 There is continued cardiomegaly. The mediastinal contour is unchanged. The pulmonary vasculature is upper normal. There is continued mild right greater than left pleural effusion, grossly similar. There is some continued atelectatic parenchymal consolidation in the right lung base which may be related to passive atelectasis. There is no new or worsening infiltrate. Osseous structures are similar. Impression: No significant interval change from the previous study. Continued right greater than left pleural effusion, improved on the left. Continued atelectatic change in the right lung base. Cardiomegaly without overt pulmonary vascular engorgement PROCEDURE INTERPRETED AT [facility] DEPARTMENT OF RADIOLOGY Final Report Signed by: Dr. Trish Kirby
--- NOTE | 2017-03-31 11:33 | Discharge Summary ---
Hospital Course - Hospital Course Hospital Course: This hospitalization included patient admitted for shortness of breath and found to be in atrial fibrillation. She has a history of intermittent atrial fibrillation and had been on Coumadin therapy in the past when she developed GI bleed and was deemed not a proper candidate for anticoagulation. This hospitalization included patient having severe shortness of breath and a pleural effusion. Cardiology was consulted and patient underwent an echocardiogram showing EF approximately 55%. She also underwent a BERNADETTE that showed EF of approximately 55% no evidence of atrial clot. The patient was started on amiodarone infusion for which her converted to a sinus mechanism. She was transitioned to amiodarone by mouth. Pulmonary was consulted for pleural effusion. The patient had a thoracentesis and tolerated the procedure. There were follow chest x-ray was show signs of improvement. The patient's breathing continued to improve. She was transitioned to Lasix by mouth. Again she continued to do acceptable. She is remained in sinus mechanism. She is to follow with Dr. Paulino in 1 week and follow with Dr. Escobar in 2 weeks. At this time she is reached maximum benefits of hospitalization and is ready for discharge. - Time spent with patient Time with patient DS: Greater than 30 minutes (35 minutes) Diagnosis - Discharge Diagnosis (1) Atrial fibrillation Status: Resolved (2) Chronic kidney disease Status: Chronic (3) CKD (chronic kidney disease) stage 3, GFR 30-59 ml/min Status: Chronic (4) Arthritis Status: Chronic (5) Pleural effusion Status: Resolved Specialty Discharge - Follow Up or Referrals Follow up with: Deya Alcaraz DO [Physician] - 1 Week Discharge Plan - Discharge Data Disposition: Disch To Home/Self Care Condition at Discharge: Stable Discharge Diet: advance to your usual diet Activity: resume usual activities as tolerated Hygiene: no restrictions - Discharge Medications New hydrALAZINE TAB [Apresoline Tab] 100 mg PO TID #90 tablet Magnesium Oxide 400 mg PO DAILY #30 tablet Metoprolol Tartrate Tab [Lopressor Tab] 50 mg PO BID #60 tablet Omeprazole [Prilosec] 20 mg PO BID #30 capsule Amiodarone Tab [Cordarone Tab] 200 mg PO BID #60 tablet Furosemide Tab [Lasix Tab] 40 mg PO BID DIURETIC #60 tablet Continue Aspirin EC Tab 81 mg PO DAILY Discontinued Metoprolol Tartrate Tab [Lopressor Tab] 25 mg PO BID - Follow Up or Referral Follow Up: Deya Alcaraz DO [Physician] - 1 Week - Forms/Instructions Additional Discharge Instructions: Follow with Dr. Escobar in 2 weeks with a CBC BMP. Exam - Constitutional Vitals: Period Temp Pulse Resp BP Sys/Wilde Pulse Ox Last 24 Hr 97.0 F-98.4 F 52-79 16-20 161-220/57-109 95-98 General appearance: normal weight - Head Head exam: Present: normal inspection - Eye Eye exam: Present: EOMI Pupils: Present: FELIX - ENT ENT exam: Present: normal exam - Neck Neck exam: Present: normal inspection - Respiratory Respiratory exam: Present: clear to auscultation bilaterally - Cardiovascular Cardiovascular exam: Present: regular rate and rhythm - GI/Abdominal GI/Abdominal exam: Present: normal bowel sounds - Extremities Exam Extremities exam: Present: normal inspection - Back Exam Back exam: Present: normal inspection - Neurological Exam Neurological exam: Present: alert, oriented X3, CN II-XII intact - Psychiatric Psychiatric exam: Present: normal affect - Skin Skin exam: Present: normal color, dry Discharge Results Procedures and tests throughout hospitalization: Pending Orders 03/27/17 10:44 Cytology Request Routine 03/27/17 15:00 AFB Culture/Smears Routine Fungal Culture w/ Prep Routine 03/29/17 10:16 CL heart Routine 03/30/17 01:51 Urine Culture Routine 03/31/17 04:00 XR chest 2V IN AM 04/01/17 04:00 B-Type Natriuretic Peptide IN AM BMP w/ Mg [Basic Metabolic Panel w/Mg] IN AM Comp Blood Count Auto Diff IN AM 04/02/17 04:00 B-Type Natriuretic Peptide IN AM Labs on day of discharge: Labs from last 24 hours 03/31/17 03/31/17 03/31/17 06:00 04:32 04:32 WBC 6.2 RBC 3.21 L Hgb 9.8 L Hct 29.1 L MCV 90.7 MCH 31 MCHC 33.7 RDW 14.7 Plt Count 281 MPV 10.2 Neut % (Auto) 59.8 Lymph % (Auto) 24.0 [place] % (Auto) 13.0 H Eos % (Auto) 2.3 Baso % (Auto) 0.6 Neut # (Auto) 3.7 Lymph # (Auto) 1.5 [place] # (Auto) 0.8 Eos # (Auto) 0.1 Baso # (Auto) 0.0 Immature Gran % 0.3 Nucleated RBC % 0.0 Immature Gran # 0.02 Nucleated RBCs # 0.00 Immature Plt Fraction 0.0 Sodium 139 Potassium 4.3 Chloride 102 Carbon Dioxide 28 Anion Gap 13.3 BUN 25 H Creatinine 2.70 H GFR Calculation 14 BUN/Creatinine Ratio 9.00 Glucose 94 Calculated Osmolality 280.5 Calcium 8.7 Magnesium 1.8 B-Natriuretic Peptide 442 H DS: Provider Date of admission: 03/25/17 16:08 Primary care physician: Brandon Escobar Jr., MD Attending physician on admission: Brandon Escobar Jr., MD Consults: 03/25/17 16:52 Consult to Physician [CONS] Routine Comment: Consulting Provider: Gilbert Holbrook When should Consulting Provider be notified: In am Person Notified: Dr Membreno Date Notified: 03/25/17 Time Notified: 18:00 03/25/17 17:20 Consult to Dietitian [CONS] Routine Reason for Dietitian: Other Consult to Pastoral Services [CONS] Routine Comment: Pastoral Screen: Request Senior Credit Analyst Visit 03/27/17 09:42 Consult to Physician [CONS] Routine Comment: Consulting Provider: Johann Crawford Consult to Specialist Group: Pulmonology When should Consulting Provider be notified: Now Person Notified: ayanna Date Notified: 03/27/17 Time Notified: 10:00 Discharging clinician: Brandon Escobar Jr., MD
--- NOTE | 2017-03-31 11:50 | Pulmonology Progress Note ---
Pulmonary - PN: Subj Interval history: This is an 82-year-old white female whom I saw in pulmonary consultation on 04/2017. My impressions were. 1. Acute atrial flutter which needs cardioversion. 2. Congestive heart failure partially refractory to treatment 3. Bilateral pleural effusions probably secondary to #2. Consider the outside possibility could be related to rheumatoid arthritis. 4. +2 aortic valve regurgitation 5. Chronic renal failure 6. See past history 03/28/2017. On 03/27/2012 the patient had a left therapeutic and diagnostic thoracentesis. Approximately 500 cc of clear straw-colored fluid was removed. Chemistry showed that this is a transudate. This is consistent with the patient 's diagnosis of congestive heart failure. Patient says she can breathe better. Today's chest x-ray shows bilateral pleural effusions and cardiomegaly. There is a mild increase in interstitial edema in the perihilar areas. All of this is consistent with congestive heart failure. Her RA factor is negative. Creatinine is increased from 1.8-2.3. BUN is 21. Electrolytes are normal. H& H is 9.3/28.4. White count is 5559 segs 25 nebs 12 monos. Platelets are 261, 000. Thyroid function test are normal. Natruretic peptide is dropped from 1306 to a value of 884 03/29/2017. Patient was seen along with 2 family members today she is feeling fine and waiting for cardioversion. The left-sided pleural effusion appears to be smaller. There is still a mild to moderate right-sided pleural effusion. Lung king show no pulmonary edema. Natruretic peptide has fallen from 1306-376. His creatinine is increased from 1.80-2.80. BUN is 20. Potassium is low at 3.3. Rheumatoid arthritis factor is less than 15 03/30/2017. Patient was cardioverted yesterday. H&H is 8.4 24.8. White count 6100. Potassium is 3.4. Creatinine is 2.90 with a BUN of 23. Patient says she feels fine. She has been in heart failure with bilateral pleural effusions. Natruretic peptide is gradually fallen to 376. I will repeat a chest x-ray tomorrow morning. 03/31/2017. Patient is lying flat in bed and breathing comfortably. She says she is doing great. On chest x-ray the left pleural effusion for practical purposes resolved. There is still a small right pleural effusion. I did not see any interstitial edema. I think this will gradually resolve with diuresis better heart function. Patient was converted to a regular sinus rhythm. On my exam her chest is clear and her breathing seems normal. I will sign off. Please reconsult as needed Physical exam. Vital signs. See below. Afebrile Psychiatric. Oriented 3 Face. Symmetrical. No edema of the lips or tongue Neck. No meningismus Lymphatics. No submandibular cervical supraclavicular adenopathy. Chest is clear Heart. Lateral PMI Abdomen. Nontender positive bowel sounds Lower extremities. Nothing to suggest deep venous thrombophlebitis Neurologic. Cranial nerves are intact with mild decreased hearing acuity bilaterally long track motor functions intact. Sensory exam was not done. I did not test the patient's gait. The remainder the physical exam is negative Plan. 03/27/[address] Membreno and I have reviewed the case and coordinating care. 2. Diagnostic and therapeutic thoracentesis on the left. I have requested multiple studies including cytology, H&H, white blood cell count with differential, glucose, LDH, SGOT, Gram stain, bacterial cultures. 3. Sed rate and rheumatoid arthritis factor 4. She will 03/28/2017. 1. See my note above 2. Left pleural fluid is a transudate compatible with congestive heart failure 3. Creatinine is increased from 1.8-2.3. Watch. 4. BNP is 884. 5. Chest x-ray, BMP and BNP have been ordered for tomorrow. 03/29/2017. 1. See my note above 2. Follow-up chest x-ray 3. Cardioversion today. 03/30/2017. 1. See my note above 2. Chest x-ray normal 03/31/2017. 1. Please to see today's note above. 2. Marked improvement in pleural effusions. 3. We will sign off. Reconsult as needed Exam (Progress Note) - Constitutional Vitals: Period Temp Pulse Resp BP Sys/Wilde Pulse Ox Last 24 Hr 97.0 F-98.4 F 52-79 16-20 161-220/57-109 95-98 Results - Labs CBC & BMP: 03/31/17 04:32 03/31/17 04:32 Specialty Discharge - Follow Up or Referrals Follow up with: Deya Alcaraz DO [Physician] - 1 Week
[2017-03-31 12:01] VITALS: BP 151/67
--- NOTE | 2017-03-31 13:39 | Order Completion Report ---
See report scanned to EMR
--- NOTE | 2017-04-01 19:16 | Pathology Report from [facility] ---
[facility] [place] : [id number] PATIENT NAME : Veronika Cash ORDERING DR : Konstantin Jo MD CLINICAL HX: CHF, atrial fibrillation, chronic renal failure POST-OP DX: Same SPECIMEN INFO: Fluid- Pleural, left - 500 mls cloudy straw with fibrinous strands CLASS: II CLASS COMMENTS: Benign mesothelial cells with numerous small lymphocytes. Specimen sent for flow cytometry to rule out clonal process.CELL BLOCK: Same. CLASS LEGEND: CLASS 0 Material inadequate for diagnosis because of (see comment) CLASS I Absence of atypical or abnormal cells CLASS II Atypical Cytology but no evidence of malignancy CLASS III Cytology suggestive of but not conclusive for malignancy CLASS IV Cytology strongly suggestive of malignancy CLASS V Cytology conclusive for malignancy COLLECTED DATE: 03/28/2017 [facility] REPORT DATE: 03/29/2017 SUPPLEMENTAL TEXT: Flow cytometry report from Caio Glynn MD., [place], [place] , [place]:LEFT PLEURAL EFFUSION: No phenotypic evidence of increased CD34 positive myeloblast, monotypic B-cell, or aberrant T-cell population.INTERPRETATION: The viability of the sample is adequate for analysis. B-cells and T-cells show normal antigen expression. There is no monotypic B-cell population. The CD4:CD8 ratio is 5.8 monocytes comprise 20%. There is nonspecific antigen staining of granulocytes and monocytes, which precludes definitive phenotypic assessment of these populations. NK-cells and CD34 positive myeloblasts are not increased. Plasma cells comprise 0.8%. Correlation with clinical data and morphology is recommended. SUPPLEMENTAL DATE: 04/01/2017 ELECTRONICALLY SIGNED BY: Bryon Clay M.D. 03/29/2017 - 8:55:08 [facility]
== END 2017-03-31 15:40 | disposition home or self-care (01) | DRG 291 ==
LOC: N.5E 16:08 → N.TELES 18:05
PROVIDERS: ADMIT Internal Medicine Nephrology; ATTEND Internal Medicine Nephrology